=== PATIENT | male | born 1955 | race Caucasian/White ===

== ENCOUNTER → 2016-09-27 | Outpatient (CLI) | payer OTHER ==
[2016-09-27 12:58] LABS: ALKALINE PHOSPHATASE 81 U/L (45-117); ALT/SGPT 57 U/L (12-78); AST/SGOT 31 U/L (15-37); BLOOD UREA NITROGEN 21 mg/dl (7-18); CALCIUM 9.2 mg/dl (8.5-10.1); CARBON DIOXIDE 28 mmol/L (21-32); CHLORIDE 106 mmol/L (98-107); GLUCOSE 93 mg/dl (70-99); HDL CHOLESTEROL 51 mg/dl; POTASSIUM 4.8 mmol/L (3.5-5.1); SODIUM 139 mmol/L (136-145)
[2016-09-27 13:00] LABS: CHOLESTEROL 167 mg/dl (0-200); CHOLESTEROL/HDL RATIO 3.3; LDL CHOLESTEROL CALCULATED 90 mg/dl; TRIGLYCERIDES 132 mg/dl (0-150); VERY LOW DENSITY LIPOPROT CALC 26 mg/dl
== END | disposition home or self-care (01) ==
LOC: C.LAB 11:15
PROVIDERS: ATTEND Family Medicine
DX: I10 Essential (primary) hypertension (principal)

== ENCOUNTER 2017-01-19 15:14 | Emergency (ER) | payer OTHER ==
[~2017-01-19] VITALS: Ht 177.8 cm; Wt 133.7 kg
[2017-01-19 15:25] VITALS: TEMP 37; Ht 177.8 cm; Wt 133.7 kg
[2017-01-19] MEDS ORDERED: XYLOCAINE 1%/SOD BICARB 20 ML VIAL INFIL ONE (15:32)
--- NOTE | 2017-01-19 16:02 | EMERGENCY ROOM VISIT NOTE ---
ED Visit Note First contact with patient: 15:30 Chief Complaint: "Cut finger pathology labwork related". History of Present Illness: This patient is a 61-year-old male who presents to the Emergency Department via private vehicle for evaluation of their left thumb laceration. Patient sustained the laceration while changing a blade on a pathology saw here in the hospital. They report a minimal amount of bleeding initially. They report no decreased range of motion of the affected digit. Patient rates his current discomfort as a 0/10. Patient's Tetanus status is currently up-to-date. 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 Physical Exam: VITAL SIGNS - Vital signs and nursing notes were reviewed.Stable. Hypertensive. GENERAL - 61-year-old male appearing his stated age who is in no acute distress. Communicates well with provider and answers questions appropriately. SKIN - There is a 1 cm long laceration noted to the distal aspect of left thumb that is superficial and no active bleeding. MUSCULOSKELETAL - Laceration as described above. +5/5 strength appreciated of the affected digit. Full range of motion of the affected digit. VASCULAR - Capillary refill was brisk. ED Course: Patient was seen and evaluated by myself. Risks and benefits of performing primary wound closure versus no repair were discussed with the patient who verbalizes understanding. Verbal consent was obtained prior to performing the procedure. The wound was not deep enough to require any closure here. The region was cleansed with sterile saline and Betadine. Region was then dressed with a bacitracin dressing. I will deem the risk of transmission significant given that it did cut him with the pathology saw which was used a few weeks ago to cut bone. He declines HIV prophylaxis. I believe this is reasonable. Based on labs were drawn. Appropriate paperwork was completed. I spoke with Ms. Jie Patterson regarding the patient. He will follow up with their office. He is to watch his blood pressure. He was educated upon management, educated upon worrisome symptoms which to return, had questions answered prior to discharge, and was discharged home in good condition. Current/Historical Medications Miscellaneous Medications None (Patient States No Home Meds) Allergies Coded Allergies: No Known Allergies (Verified , 02/04/11) Uncoded Allergies: N (Allergy, Unknown, 03/27/02) NKDA (Allergy, Unknown, 03/27/02) Vital Signs Date Time Temp Pulse Resp B/P (MAP) Pulse Ox O2 Delivery O2 Flow Rate FiO2 01/19/17 16:40 84 18 162/114 94 Room Air 01/19/17 15:25 37.0 89 16 196/104 96 Room Air Departure Information Impression Primary Impression: Laceration Additional Impression: Employee exposure to body fluids Dispostion Home / Self-Care Condition GOOD Referrals Shaun Jo DO (PCP) Patient Instructions My [facility] Additional Instructions You were seen in the emergency department for your thumb laceration as well as exposure to potential body fluid/dust. At this time you have submitted to baseline testing. Please follow with Jie Patterson as well as employee health for further evaluation and management. Please watch for signs of infection to the thumb keep the area clean. Please return with any new/concerning symptoms. Problem Qualifiers
[2017-01-19 16:40] VITALS: BP 162/114; PULSE 84; O2SAT 94
== END 2017-01-19 16:40 | disposition home or self-care (01) ==
LOC: C.EDB 15:16 → C.EDD 16:40
DX: S61.012A Laceration without foreign body of left thumb without damage to nail, initial encounter (principal); W31.9XXA Contact with unspecified machinery, initial encounter; Z77.21 Contact with and (suspected) exposure to potentially hazardous body fluids

== ENCOUNTER 2023-02-25 09:46 | Inpatient (IN) ==
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
--- OUTSIDE RECORDS SUMMARY | 2023-02-25 09:50 | External Medical Summary | Continuity of Care Document ---
Author Name Unknown Organization [place] [address] [address] [facility] [address] [place], [place] [id number] Care Team Providers Care Exchange Clerk Name Role Phone Shaun Jo Primary Care Physician [phone] Encounter [facility] JOVANNY [id number] Date(s): 11/16/22 - 11/16/22 [place] [address] [address]AR [address] [facility] Neurosurgery [address] [facility] [place] [address] [phone] Encounter Diagnosis Parkinson disease(Discharge Diagnosis) - 11/16/22 Discharge Disposition: Home or Self Care Attending Physician: MD Lord James Referring Physician: ALYSE Ahumada Renee D Allergies, Adverse Reactions, Alerts No Known Medication Allergies Assessment and Plan Extracted from: Title:Clinical Document Author:MD Lord Ja mes Date:11/16/22 NEUROSURGERY OUTPATIENT NOTE Name: HERMELINDA LEWIS Patient Number: [id number] : 1955 Date of Service: 11/16/2022 Chief Complaint: 67 yo male, s/p Left cranial wound revision. HPI: Hermelinda Lewis is a gentleman who underwent bilateral STN deep brain stimulator implantation in May and had an area of breakdown develop over his left cranial wound. We repaired that electively in September and he comes in today for a post op check. He has been off antibiotics for two weeks and he continues to heal well. He has no concerns. Current Home Meds: (Last Updated 11/16 10:40) carbidopa-levodopa (carbidopa-levodopa 25 mg-100 mg oral tablet) 1 tab PO bid 7 am and 3 pm with option of up to 3 times a day on a busy day cephalexin (Keflex 250 mg oral capsule) 250 mg PO qid chlorthalidone (chlorthalidone 25 mg oral tablet) 25 mg PO Daily cholecalciferol (D3) 1 tab PO Daily cyanocobalamin (Vitamin B12) 1 tab PO Daily lisinopril 40 mg PO Daily multivitamin (Multi Vitamin+) 1 tab PO Daily Allergies and Sensitivities: No Known Medication Allergies Past Medical History: Problems: S/P deep brain stimulator placement Pre-op exam Parkinson disease Essential hypertension OBJECTIVE Vitals: Last Updated 11/16/22 10:42 Date Temp BP Location Pulse RR SpO2 Pain 11/16/22 121/78 Right Arm 100 11/16/22 0 10/02/22 126/77 96 21 97 0 Vital Signs are the last 3 documented. Orthostatic: Last Updated 09/19/22 14:36 Date Lying 5 Min BP Lying 5 Min HR Standing 1 Min BP Standing 1 Min HR Standing 3 Min BP Standing 3 Min HR 09/19/22 152/83 93 06/28/22 159/101 100 Orthostatic blood pressures are the last 3 documented. Height and Weight: Last Updated 11/16/22 10:42 Date BMI Wt(kg) Wt(lb) Method Ht(cm) (ft-in) Method 11/16/22 40.58 128.3 282 Standing Scale 177.8 5-10 Patient stated 10/02/22 39.7 10/02/22 125.5 276 Standing Scale Heights and Weights are the last 3 documented. Physical Exam: General: Well developed, Well nourished, in no acute distress HEENT: Normocephalic, well healed left cranial incision Pupils equal reactive Extraocular motions intact Face symmetric Hearing intact Voice normal Neck: Full range of motion, Sternocleidomastoid strength equal bilaterally Cardiac: no abnormalities noted Lungs: no abnormalities noted Abdomen: no abnormalities noted Rectal: deferred : deferred Back: no abnormalities noted Extremities: no abnormalities noted Neuro: Awake, Alert oriented x 3 Aware of his situation CN II-XII intact Motor function 5/5 throughout B upper and lower extremities Sensation intact in B upper and lower extremities Gait normal Tone increased Skin: Normal 30 Day Labs: No 30 Day Lab Data. ASSESSMENT: 67 yo male, s/p Left cranial wound revision. PLAN: Mr. Lewis is doing we ll. We can follow him up on his current schedule which will be one year after surgery. He was pleased with these plans as we outlined them and all of his questions were answered today. He knows we are available at any time should further questions or problems arise. Time spent: 15 minutes >50% spent in counseling and care coordination. Medications carbidopa-levodopa 25 mg-100 mg oral tablet [...] qid, Disp# 360 cap, Refills: 3, Pharmacy: [facility]/pharmacy #[id number] Start Date: 10/02/22 Status: Ordered lisinopril Start: 06/28/22 12:49:00 EDT, 40 mg =, PO, Daily Start Date: 06/28/22 Status: Ordered Multi Vitamin+ Start: 05/16/22 8:24:00 EDT, 1 tab, PO, Daily Start Date: 05/16/22 Status: Ordered Vitamin B12 Start: 05/16/22 8:25:00 EDT, 1 tab, PO, Daily Start Date: 05/16/22 Status: Ordered Mental Status 11/16/22 Barriers to Learning one year None evide nt Mandatory Health Literacy Documentation Yes Health Literacy Communication Barriers N ever Primary Language Gu[place]ian Problem List Condition Confirmation Course Effective Dates Status Health St atus Informant Essential hypertension Confirmed Active S/P deep brain stimulator placement Confirmed Active Pre-op exam Confirmed Active Diagnosis Diagnosis Type Effective Dates Health Status Cl inical Service Informant Parkinson disease Discharge Diagnosis 11/16/22 Procedures Procedure Date Related Diagnosis Body Site [...] oldest [Reference Range]: 1 Height 177.8 cm (11/16/22 10:42 AM) Patient Weight 128.3 kg (11/16/22 10:42 AM) Body Mass Index 40.58 kg/m2 (11/16/22 10:42 AM) Heart Rate 100 bpm (11/16/22 10:42 AM) Blood Pressure 121/78mmHg (11/16/22 10:42 AM) BP Location # 1 Right Arm (11/16/22 10:42 AM) Social History Social History Type Response [...] Unknown Unknown Active Unkn own Unknown Unknown [id number] Unknown 03/01/23 Unknown Unknown Active Unk nown [...] Unknown Unknown Active Unkn own Unknown Unknown [id number] Unknown 01/28/23 Unknown Unknown Active Unknown Unknown Unknown [id number] Unknown 01/28/23 Unknown Unknown Active Unknown Neurosurgery Outpt Note * MD Risa, Jerry: PERFORM Event Display: Neurosurgery Outpt Note Authored Date: [id number] NEUROSURGERY OUTPATIENT NOTE Name: HERMELINDA LEWIS Patient Number: [id number] : 1955 Date of Service: 11/16/2022 Chief Complaint: 67 yo male, s/p Left cranial wound revision. HPI: Hermelinda Lewis is a gentleman who underwent bilateral STN deep brain stimulator implantation in May and had an area of breakdown develop over his left cranial wound. We repaired that electively in September and he comes in today for a post op check. He has been off antibiotics for two weeks and hecontinues to heal well. He has no concerns. Current Home Meds: (Last Updated 11/16 10:40) carbidopa-levodopa (carbidopa-levodopa 25 mg-100 mg oral tablet) 1 tab PO bid 7 am and 3 pm with option of up to 3 times a day on a busy day cephalexin (Keflex 250 mg oral capsule) 250 mg PO qid chlorthalidone (chlorthalidone 25 mg oral tablet) 25 mg PO Daily cholecalciferol (D3) 1 tab PO Daily cyanocobalamin (Vitamin B12) 1 tab PO Daily lisinopril 40 mg PO Daily multivitamin (Multi Vitamin+) 1 tab PO Daily Allergies and Sensitivities: No Known Medication Allergies Past Medical History: Problems: S/P deep brain stimulator placement Pre-op exam Parkinson disease Essential hypertension OBJECTIVE Vitals: Last Updated 11/16/22 10:42 Date Temp BP Location Pulse RR SpO2 Pain 11/16/22 121/78 Right Arm 100 11/16/22 0 10/02/22 126/77 96 21 97 0 Vital Signs are the last 3 documented. Orthostatic: Last Updated 09/19/22 14:36 Date Lying 5 Min BP Lying 5 Min HR Standing 1 Min BP Standing 1 Min HR Standing 3 Min BP Standing 3 Min HR 09/19/22 152/83 93 06/28/22 159/101 100 Orthostatic blood pressures are the last 3 documented. Height and Weight: Last Updated 11/16/22 10:42 Date BMI Wt(kg) Wt(lb) Method Ht(cm) (ft-in) Method 11/16/22 40.58 128.3 282 Standing Scale 177.8 5-10 Patient stated 10/02/22 39.7 10/02/22 125.5 276 Standing Scale Heights and Weights are the last 3 documented. Physical Exam: General: Well developed, Well nourished, in no acute distress HEENT: Normocephalic, well healed left cranial incision Pupils equal reactive Extraocular motions intact Face symmetric Hearing intact Voice normal Neck: Full range of motion, Sternocleidomastoid strength equal bilaterally Cardiac: no abnormalities noted Lungs: no abnormalities noted Abdomen: no abnormalities noted Rectal: deferred : deferred Back: no abnormalities noted Extremities: no abnormalities noted Neuro: Awake, Alert oriented x 3 Aware of his situation CN II-XII intact Motor function 5/5 throughout B upper and lower extremities Sensation intact in B upper and lower extremities Gait normal Tone increased Skin: Normal 30 Day Labs: No 30 Day Lab Data. ASSESSMENT: 67 yo male, s/p Left cranial wound revision. PLAN: Mr. Lewis is doing we ll. We can follow him up on his current schedule which will be one year after surgery. He was pleased with these plans as we outlined them and all of his questions were answered today. He knows we are available at any time should further questions or problems arise. Time spent: 15 minutes >50% spent in counseling and care coordination. Electronic Signature on File Electronically Reviewed/Signed by: Jerry Lord MD, FACS, FAANS Author Signature Dt/Tm:11/16/2022 04:04 PM Professor, Department of Neurosurgery [facility] [address], [address] [place] [address] , Patient Care team information Care Team Personnel Name: Isabella, PhD, Rand Position: Physician - Neurosurgery Member Role: Lifetime Relationship Address: Address: Neurosurgery [address] [place] [address] [address] [place] [address] Name: DO Jo Brian Rodger Position: Referring Member Role: Primary Care Provider Address: Address: [address] [place] [id number] [place] Care Team Related Persons Name: BENITO LEWIS Address: home NO ADDRESS PROVIDED
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
--- OUTSIDE RECORDS SUMMARY | 2023-02-25 09:50 | External Medical Summary | Continuity of Care Document ---
Author Name Unknown Organization [place] [address] [address] Address [address] [facility] [address] [place] [phone] Care Team Providers Care Block Cableman Name Role Phone Shaun Jo Primary Care Physician [phone] [id number] Date(s): 09/19/22 - 09/19/[address] [place] [address] [facility] [place] [address] [facility], [address], Entr[address] [place] [address] [phone] Encounter Diagnosis Parkinson disease(Discharge Diagnosis) - 09/19/22 Discharge Disposition: Home or Self Care Attending Physician: Lombardo MD, Martina Referring Physician: DO Jo Brian Rodger Allergies, Adverse Reactions, Alerts No Known Medication Allergies Assessment and Plan Extracted from: Title:Clinical Document Author:Lombardo MD, Martina Date:09/19/22 NEUROLOGY OUTPATIENT NOTE Name: HERMELINDA LEWIS Patient Number: [id number] : [id number] Date of Service: 09/19/2022 Chief Complaint: _ PD/ET, DBS 3 month from initial (06/28/2022) HPI: _ History was obtained from . Mr. Lewis is a 66 year old right handed gentleman with Parkinson disease/Essential tremor, symptoms onset tremor at childhood and parkinsonism since 2019. TU scan obtained at candidacy screening clinic with abnormal dopaminergic changes consistent with a parkinsonian disorder. He is status post a bilateral STN deep brain stimulation lead placement Percept S[facility] on 05/24/2022 and left IPG placement 05/31/2022 at [facility]. Indications for DBS _ breakthrough tremor Expectations for DBS to help with: #1 tremors #2 muscle heaviness and leg stiffness #3_ improve slowness Current Medications: Sinemet 25/100mg 1 tab TID reduced at last visit from 2 tab PO tid 7, 11, 3 Benefit from medication: no big difference between dosages, no significant negative effects with missing a dose or reducing. Past medications trialed: _ Propranolol no improvement legs felt like lead and dropped his pulse. with past Sinemet increases felt Brain fog for several months. Since the last visit, finds he is doing well. Was able to reduce medicine without any side effects. Not experiencing tremors before the surgery required eating with opposite hand and adapting. No brain fog currently. Mood is good. Feels close to 100% improved he can write, eat and do activities he has not been able to do in the past. Has not made any adjustments since the last visit, last adjustments did help. Does not notice stiffness and rigidity. Percept Group Setting: beginning of visit Battery 96% Expected battery life: 7years 4months Impedance: Normal Default Therapy group: A: 1- C+ 2.2 mA PW 60 Freq 135 [0.0- 2.6] with increased mA 10- C+ 1.9mA PW 60 Freq 135 [0.0-2.3] BrainSensing Group: A: 1- C+ 2.2 mA PW 60 Freq 125 [0.0-2.7] 10- C+ 1.9mA PW 60 Freq 125 [0.0-2.3] New Therapy Group A: 1- C+ 2.2 mA PW 60 Freq 140 [0.0- 2.6] Arrived on this group 10- C+ 1.9mA PW 60 Freq 140 [0.0-2.3] Brain sense survey: Left hemisphere peak 11.72 [power:1.25] *0-3* segment 8.79 [1.25] Right hemisphere peak 8.79 power [2.12] *8-19* Events Monitored: No monitoring events for this visit Brainsense set up: not changed today from prior set up Contact 1 peak7.81 [power above 1.39] Contact 2- peak7.81 [power 1.20] Contact 1-2- peak11.72 [power 1.25] Contact 9 peak 26.37 [power 1.14] Contact 10 peak26.37 [power 1.44] Contact 9-10- peak7.81 [power 2.14] Clinical Global Impression Scale (obtained at 3 months, 6 months and annually): Primary symptom tremor Overall symptoms muscle heaviness, leg stiffness, bradykinesia Patient perception (primary symptom) 1 Examiner evaluation (primary symptom) 1 Patient perception (overall symptoms) 1 Examiner evaluation (overall symptom) 1 1=Very much improved; 2=Much improved; 3=Minimally improved; 4=No change; 5=Minimally worse; 6=Much worse; 7=Very much worse Current Home Meds: (Last Updated 08/25 13:04) carbidopa-levodopa (carbidopa-levodopa 25 mg-100 mg oral tablet) 2 tab PO tid chlorthalidone (chlorthalidone 25 mg oral tablet) 25 mg PO Daily cholecalciferol (D3) 1 tab PO Daily cyanocobalamin (Vitamin B12) 1 tab PO Daily lisinopril 40 mg PO Daily multivitamin (Multi Vitamin+) 1 tab PO Daily Allergies and Sensitivities: No Known Medication Allergies Past Medical History: Problems: Pre-op exam Parkinson disease Essential hypertension OBJECTIVE Vitals: Last Updated 08/25/22 13:02 Date Temp BP Location Pulse RR SpO2 Pain 08/25/22 36.7 134/85 Left Arm 90 16 08/25/22 0 07/28/22 36.6 138/84 Left Arm 100 16 Vital Signs are the last 3 documented. Orthostatic: Last Updated 06/28/22 12:50 Date Lying 5 Min BP Lying 5 Min HR Standing 1 Min BP Standing 1 Min HR Standing 3 Min BP Standing 3 Min HR 06/28/22 159/101 100 Orthostatic blood pressures are the last 3 documented. Height and Weight: Last Updated 08/25/22 13:02 Date BMI Wt(kg) Wt(lb) Method Ht(cm) (ft-in) Method 08/25/22 40.71 129 284 Standing Scale 178 5-10 Standing 07/28/22 129.3 284 Standing Scale 06/28/22 128 282 Standing Scale Heights and Weights are the last 3 documented. Physical Exam General: Patient is well appearing, in no acute distress. III. MOTOR EXAMINATION OFF levodopa 430pm yesterday 3a. Is the patient on medication for treating the symptoms of Parkinson s Disease? _XYes _No 3b. Patient s clinical state: _ON X_OFF 3c. Is the patient on Levodopa? X_Yes _No 3.C1. If yes, minutes since last levodopa dose: 8.5 hours 3.1. Speech X_0 _1 _2 _3 _4 3.2. Facial expression _0 X_1 _2 _3 _4 3.3. Rigidity a.Neck _0 X_1 _2 _3 _4 b.Right Upper extremity _0 X_1 _2 _3 _4 c.Left Upper extremity _0 X_1 _2 _3 _4 worse d. Right Lower extremity X_0 _1 _2 _3 _4 e. Left Lower extremity _0 X_1 _2 _3 _4 3.4 Finger taps a. Right hand X_0 _1 _2 _3 _4 b. Left hand _0 X_1 _2 _3 _4 3.5. Hand movements a. Right hand _0 _1 X_2 _3 _4 b. Left hand _0 X_1 _2 _3 _4 3.6. Rapid alternating a. Right hand _0 X_1 _2 _3 _4 b. Left hand _0 X_1 _2 _3 _4 slight slower 3.7 Toe tapping a. Right leg X_0 _1 _2 _3 _4 b. Left leg _0 X_1 _2 _3 _4 3.8 Leg agility a. Right leg _0 X_1 _2 _3 _4 b. Left leg _0 X_1 _2 _3 _4 3.9 Arising from chair _0 X_1 _2 _3 _4 3.10 Gait X_0 _1 _2 _3 _4 3.11 Freezing X_0 _1 _2 _3 _4 3.12 Postural stability X_0 _1 _2 _3 _4 0 steps 3.13 Posture _0 X_1 _2 _3 _4 3.14 Body bradykinesia X_0 _1 _2 _3 _4 3.15 Post tremor a. Right hand X_0 _1 _2 _3 _4 b. Left hand X_0 _1 _2 _3 _4 3.16 Action tremor a. Right hand X_0 _1 _2 _3 _4 b. Left hand _0 X_1 _2 _3 _4 3.17. Rest Tremor a. Right Hand _0 X_1 _2 _3 _4 b. Left Hand _0 _1 X_2 _3 _4 intermittent c. Right Leg X_0 _1 _2 _3 _4 d. Left Leg X_0 _1 _2 _3 _4 e. Face Tremor X_0 _1 _2 _3 _4 3.18 Constancy of rest tremor _0 X_1 _2 _3 _4 Motor Sub-total: 21/132 Previous Motor Sub-Total: 25/132 Motor Sub-total OFF:49/132 Motor Sub-total ON:43/132 (levodopa 12% response) Percept Group Setting: end of visit Default Therapy group: A: 1- C+ 2.2 mA PW 60 Freq 135 [0.0- 2.6] 10- C+ 1.9mA PW 60 Freq 135 [0.0-2.3] BrainSensing Group: A: 1- C+ 2.2 mA PW 60 Freq 125 [0.0-2.7] 10- C+ 1.9mA PW 60 Freq 125 [0.0-2.3] New Therapy Group A: 1- C+ 2.2 mA PW 60 Freq 140 [0.0- 2.6] Left on this group 10- C+ 1.9mA PW 60 Freq 140 [0.0-2.3] ASSESSMENT: _ Parkinson disease Mr. Lewis is a 66 year old right handed gentleman with Parkinson disease/Essential tremor, symptoms onset tremor at childhood and parkinsonism since 2019. TU scan obtained at candidacy screening clinic with abnormal dopaminergic changes consistent with a parkinsonian disorder. Family history of tremor. Levodopa challenge 12 % response, subjectively improved on levodopa. Symptoms inadequately controlled due to bothersome tremor impacting social situations and daily activities. No clear kicking in or wearing off of levodopa. Tremor medications in the past (Propranolol) without improvement and side effects of bradycardia. Exposures secondary to occupation. He is status post a bilateral STN deep brain stimulation lead placement Per[facility] on 05/24/2022 and left IPG placement 05/31/2022 at [facility]. He has done extremely well with symptom control at 3 month checking, motor scores continue to improve from baseline in the off medication ON DBS state. Resolution of brain fog, follow up neuropsych testing stable. Tolerated medication reduction and continues to be able to skip dosages without clear return of symptoms. PLAN: _ 1 ) _ Medication recommendations: can consider reducing to BID 7am, 3pm 2 ) _ Advised to keep an eye of left posterior incision looks clear without secretions however question of scab region, have taken picture and informed neurosurgery team for upcoming follow up next week. 3) Patient will return to clinic in 3 month(s) for further evaluation and management of his deep brain stimulator. I spent a total of 50 minutes on this patient's care on the day of their visit excluding time spent related to any billed procedures (15 minutes interrogation and programming of his deep brain stimulator. General and therapeutic impedances were obtained and battery status checked). This time includes gxde-dv-gpeb time with the patient as well as time spent documenting in the medical record, reviewing patient's records, obtaining history, communicating with other healthcare professionals, counseling the patient and family and or care coordination for the diagnosis above. Thank you for the kind referral and for allowing us the opportunity to participate in the care of this patient. I hope to follow and help manage the patient in partnership with you. Please do not hesitate to contact our department with further questions or concerns. Medications carbidopa-levodopa 25 mg-100 mg oral tablet [...] PO, Daily Start Date: 05/16/22 Status: Ordered lisinopril Start: 06/28/22 12:49:00 EDT, 40 mg =, PO, Daily Start Date: 06/28/22 Status: Ordered Multi Vitamin+ Start: 05/16/22 8:24:00 EDT, 1 tab, PO, Daily Start Date: 05/16/22 Status: Ordered Vitamin B12 Start: 05/16/22 8:25:00 EDT, 1 tab, PO, Daily Start Date: 05/16/22 Status: Ordered Mental Status 09/19/22 Barriers to Learning one year None evide nt Mandatory Health Literacy Documentation Yes Health Literacy Communication Barriers N ever Primary Language Georgian Problem List Condition Confirmation Course Effective Dates Status Health St atus Informant Essential hypertension Confirmed Active S/P deep brain stimulator placement Confirmed Active Pre-op exam Confirmed Active Diagnosis Diagnosis Type Effective Dates Health Status Cl inical Service Informant Parkinson disease Discharge Diagnosis 09/19/22 Procedures Procedure Date Related Diagnosis Body Site [...] Most recent to oldest [Reference Range]: 1 Patient Weight 128.8 kg (09/19/22 2:36 PM) Heart Rate 89 bpm (09/19/22 2:36 PM) Blood Pressure 141/82mmHg (09/19/22 2:36 PM) Cuff Pulse Pressure 59 mmHg (09/19/22 2:36 PM) BP Location # 1 Left Arm (09/19/22 2:36 PM) Social History Social History Type Response [...] Unknown Unknown Active Unkn own Unknown Unknown [id number] Unknown 03/01/23 Unknown Unknown Active Unk nown [...] Unknown Unknown Active Unkn own Unknown Unknown [id number] Unknown 01/28/23 Unknown Unknown Active Unknown Unknown Unknown [id number] Unknown 01/28/23 Unknown Unknown Active Unknown Neurology Outpatient Note * Lombardo MD, Martina: PERFORM, MODIFY, MODIFY Event Display: Neurology Outpt Note Authored Date: [id number] NEUROLOGY OUTPATIENT NOTE Name: HERMELINDA LEWIS Patient Number: [id number] : [id number] Date of Service: 09/19/2022 Chief Complaint: _ PD/ET, DBS 3 month from initial (06/28/2022) HPI: _ History was obtained from . Mr. Lewis is a 66 year old right handed gentleman with Parkinson disease/Essential tremor, symptoms onset tremor at childhood and parkinsonism since 2019. TU scan obtained at candidacy screening clinic with abnormal dopaminergic changes consistent with a parkinsonian disorder. He is status post abilateral STN deep brain stimulation lead placement Percept [facility] on 05/24/2022 and left IPG placement 05/31/2022 at [facility]. Indications for DBS _ breakthrough tremor Expectations for DBS to help with: #1 tremors #2 muscle heaviness and leg stiffness #3_ improve slowness Current Medications: Sinemet 25/100mg 1 tab TID reduced at last visit from 2 tab PO tid 7, 11, 3 Benefit from medication: no big difference between dosages, no significant negative effects with missing a dose or reducing. Past medications trialed: _ Propranolol no improvement legs felt like lead and dropped his pulse. with past Sinemet increases felt Brain fog for several months. Since the last visit, finds he is doing well. Was able to reduce medicine without any side effects.Not experiencing tremors before the surgery required eating with opposite hand and adapting. No brain fog currently. Mood is good. Feels close to 100% improved he can write, eat and do activities he has not been able to do in the past. Has not made any adjustments since the last visit, last adjustments did help. Does not notice stiffness and rigidity. Percept Group Setting: beginning of visit Battery 96% Expected battery life: 7years 4months Impedance: Normal Default Therapy group: A: 1- C+ 2.2 mA PW 60 Freq 135 [0.0- 2.6] with increased mA 10- C+ 1.9mA PW 60 Freq 135 [0.0-2.3] BrainSensing Group: A: 1- C+ 2.2 mA PW 60 Freq 125 [0.0-2.7] 10- C+ 1.9mA PW 60 Freq 125 [0.0-2.3] New Therapy Group A: 1- C+ 2.2 mA PW 60 Freq 140 [0.0- 2.6] Arrived on this group 10- C+ 1.9mA PW 60 Freq 140 [0.0-2.3] Brain sense survey: Left hemisphere peak 11.72 [power:1.25] *0-3* segment 8.79 [1.25] Right hemisphere peak 8.79 power [2.12] *8-19* Events Monitored: No monitoring events for this visit Brainsense set up: not changed today from prior set up Contact 1 peak7.81 [power above 1.39] Contact 2- peak7.81 [power 1.20] Contact 1-2- peak11.72 [power 1.25] Contact 9 peak 26.37 [power 1.14] Contact 10 peak26.37 [power 1.44] Contact 9-10- peak7.81 [power 2.14] Clinical Global Impression Scale (obtained at 3 months, 6 months and annually): Primary symptom tremor Overall symptoms muscle heaviness, leg stiffness, bradykinesia Patient perception (primary symptom) 1 Examiner evaluation (primary symptom) 1 Patient perception (overall symptoms) 1 Examiner evaluation (overall symptom) 1 1=Very much improved; 2=Much improved; 3=Minimally improved; 4=No change; 5=Minimally worse; 6=Muchworse; 7=Very much worse Current Home Meds: (Last Updated 08/25 13:04) carbidopa-levodopa (carbidopa-levodopa 25 mg-100 mg oral tablet) 2 tab PO tid chlorthalidone (chlorthalidone 25 mg oral tablet) 25 mg PO Daily cholecalciferol (D3) 1 tab PO Daily cyanocobalamin (Vitamin B12) 1 tab PO Daily lisinopril 40 mg PO Daily multivitamin (Multi Vitamin+) 1 tab PO Daily Allergies and Sensitivities: No Known Medication Allergies Past Medical History: Problems: Pre-op exam Parkinson disease Essential hypertension OBJECTIVE Vitals: Last Updated 08/25/22 13:02 Date Temp BP Location Pulse RR SpO2 Pain 08/25/22 36.7 134/85 Left Arm 90 16 08/25/22 0 07/28/22 36.6 138/84 Left Arm 100 16 Vital Signs are the last 3 documented. Orthostatic: Last Updated 06/28/22 12:50 Date Lying 5 Min BP Lying 5 Min HR Standing 1 Min BP Standing 1 Min HR Standing 3 Min BP Standing 3 Min HR 06/28/22 159/101 100 Orthostatic blood pressures are the last 3 documented. Height and Weight: Last Updated 08/25/22 13:02 Date BMI Wt(kg) Wt(lb) Method Ht(cm) (ft-in) Method 08/25/22 40.71 129 284 Standing Scale 178 5-10 Standing 07/28/22 129.3 284 Standing Scale 06/28/22 128 282 Standing Scale Heights and Weights are the last 3 documented. Physical Exam General: Patient is well appearing, in no acute distress. III. MOTOR EXAMINATION OFF levodopa 430pm yesterday 3a. Is the patient on medication for treating the symptoms of Parkinsons Disease? _XYes _No 3b. Patients clinical state: _ON X_OFF 3c. Is the patient on Levodopa? X_Yes _No 3.C1. If yes, minutes since last levodopa dose: 8.5 hours 3.1. Speech X_0 _1 _2 _3 _4 3.2. Facial expression _0 X_1 _2 _3 _4 3.3. Rigidity a.Neck _0 X_1 _2 _3 _4 b.Right Upper extremity _0 X_1 _2 _3 _4 c.Left Upper extremity _0 X_1 _2 _3 _4 worse d. Right Lower extremity X_0 _1 _2 _3 _4 e. Left Lower extremity _0 X_1 _2 _3 _4 3.4 Finger taps a. Right hand X_0 _1 _2 _3 _4 b. Left hand _0 X_1 _2 _3 _4 3.5. Hand movements a. Right hand _0 _1 X_2 _3 _4 b. Left hand _0 X_1 _2 _3 _4 3.6. Rapid alternating a. Right hand _0 X_1 _2 _3 _4 b. Left hand _0 X_1 _2 _3 _4 slight slower 3.7 Toe tapping a. Right leg X_0 _1 _2 _3 _4 b. Left leg _0 X_1 _2 _3 _4 3.8 Leg agility a. Right leg _0 X_1 _2 _3 _4 b. Left leg _0 X_1 _2 _3 _4 3.9 Arising from chair _0 X_1 _2 _3 _4 3.10 Gait X_0 _1 _2 _3 _4 3.11 Freezing X_0 _1 _2 _3 _4 3.12 Postural stability X_0 _1 _2 _3 _4 0 steps 3.13 Posture _0 X_1 _2 _3 _4 3.14 Body bradykinesia X_0 _1 _2 _3 _4 3.15 Post tremor a. Right hand X_0 _1 _2 _3 _4 b. Left hand X_0 _1 _2 _3 _4 3.16 Action tremor a. Right hand X_0 _1 _2 _3 _4 b. Left hand _0 X_1 _2 _3 _4 3.17. Rest Tremor a. Right Hand _0 X_1 _2 _3 _4 b. Left Hand _0 _1 X_2 _3 _4 intermittent c. Right Leg X_0 _1 _2 _3 _4 d. Left Leg X_0 _1 _2 _3 _4 e. Face Tremor X_0 _1 _2 _3 _4 3.18 Constancy of rest tremor _0 X_1 _2 _3 _4 Motor Sub-total: 21/132 Previous Motor Sub-Total: 25/132 Motor Sub-total OFF:49/132 Motor Sub-total ON:43/132 (levodopa 12% response) Percept Group Setting: end of visit Default Therapy group: A: 1- C+ 2.2 mA PW 60 Freq 135 [0.0- 2.6] 10- C+ 1.9mA PW 60 Freq 135 [0.0-2.3] BrainSensing Group: A: 1- C+ 2.2 mA PW 60 Freq 125 [0.0-2.7] 10- C+ 1.9mA PW 60 Freq 125 [0.0-2.3] New Therapy Group A: 1- C+ 2.2 mA PW 60 Freq 140 [0.0- 2.6] Left on this group 10- C+ 1.9mA PW 60 Freq 140 [0.0-2.3] ASSESSMENT: _ Parkinson disease Mr. Lewis is a 66 year old right handed gentleman with Parkinson disease/Essential tremor, symptoms onset tremor at childhood and parkinsonism since 2019. TU scan obtained at candidacy screening clinic with abnormal dopaminergic changes consistent with a parkinsonian disorder. Family history of tremor. Levodopa challenge 12 % response, subjectively improved on levodopa. Symptoms inadequately controlled due to bothersome tremor impacting social situations and daily activities. No clear kickingin or wearing off of levodopa. Tremor medications in the past (Propranolol) without improvement andside effects of bradycardia. Exposures secondary to occupation. He is status post a bilateral STN deep brain stimulation lead placement Percept [facility] on 05/24/2022 and left IPG placement 05/31/2022 at [facility]. He has done extremely well with symptom control at 3 month checking, motor scores continue to improve from baseline in the off medication ON DBS state. Resolution of brain fog, follow up neuropsych testing stable. Tolerated medication reduction and continues to be able to skip dosages without clear return of symptoms. PLAN: _ 1 ) _ Medication recommendations: can consider reducing to BID 7am, 3pm 2 ) _ Advised to keep an eye of left posterior incision looks clear without secretions however question of scab region, have taken picture and informed neurosurgery team for upcoming follow up next week. 3) Patient will return to clinic in 3 month(s) for further evaluation and management of his deep brain stimulator. I spent a total of 50 minutes on this patient's care on the day of their visit excluding time spentrelated to any billed procedures (15 minutes interrogation and programming of his deep brain stimulator. General and therapeutic impedances were obtained and battery status checked). This time includes muwn-gz-aibm time with the patient as well as time spent documenting in the medical record, reviewing patient's records, obtaining history, communicating with other healthcare professionals, counseling the patient and family and or care coordination for the diagnosis above. Thank you for the kind referral and for allowing us the opportunity to participate in the care of this patient. I hope to follow and help manage the patient in partnership with you. Please do not hesitate to contact our department with further questions or concerns. Electronic Signature on File CC: Shaun Jo DO [facility] [place] [address] * Electronically Reviewed/Signed by: Martina Lombardo MD Author Signature Dt/Tm:09/19/2022 04:05 PM Department of Neurology [place] Patient Care team information Care Team Personnel Name: PhD Isabella, Rand Position: Physician - Neurosurgery Member Role: Lifetime Relationship Address: Address: Neurosurgery [address] [place] [address] [address] [place] [address] [place] Name: DO Jo Brian Rodger Position: Referring Member Role: Primary Care Provider Address: Address: [address] [place] [address] [place] [address] Care Team Related Persons Name: BENITO LEWIS Address: home NO ADDRESS PROVIDED
--- OUTSIDE RECORDS SUMMARY | 2023-02-25 09:50 | External Medical Summary | Continuity of Care Document ---
Author Name Unknown Organization [place] [address] [address] [place] [address] [place] [id number] Care Team Providers Care Acute Care Nurse Name Role Phone Shaun Jo Primary Care Physician [phone] [facility] [id number] Date(s): 09/19/22 - 09/19/22 [place] [address] [address] [facility] Neurosurgery [address], [address], [address] [place] [address] [phone] Encounter Diagnosis Dementia(Discharge Diagnosis) - 09/19/22 Parkinsons disease(Discharge Diagnosis) - 09/19/22 Discharge Disposition: Home or Self Care Attending Physician: Isabella, PhD, [facility] Referring Physician: DO Jo Brian Rodger Allergies, [...] Diagnosis Diagnosis Type Effective Dates Health Status Clinical Service Informant Parkinsons disease Discharge Diagnosis 09/19/22 Non-Specified Dementia Discharge Diagnosis 09/19/22 Non-Specified Procedures Procedure Date Related Diagnosis Body [...] Unknown Unknown Active Unkn own Unknown Unknown [id number] Unknown 03/01/23 Unknown Unknown Active Unk nown [...] Unknown Unknown Active Unkn own Unknown Unknown [id number] Unknown 01/28/23 Unknown Unknown Active Unknown Unknown Unknown [id number] 21 Unknown 01/28/23 Unknown Unknown Active Unknown Patient Care team information Care Team Personnel Name: Isabella, PhD, Rand Position: Physician - Neurosurgery Member Role: Lifetime Relationship Address: Address: Neurosurgery [address] [place] [address] [address] [place] [address] [place] Name: DO Jo Brian Rodger Position: Referring Member Role: Primary Care Provider Address: Address: [address] [place] [address], [place] [address] [place] Care Team Related Persons Name: BENITO LEWIS Address: home NO ADDRESS PROVIDED
--- OUTSIDE RECORDS SUMMARY | 2023-02-25 09:50 | External Medical Summary | Continuity of Care Document ---
Author Name Unknown Organization [place] [address] [address] [place], [place] [id number] Care Team Providers Care Scrap Piler Name Role Phone Shaun Jo Primary Care Physician [phone] [facility]counter [facility] [id number] Date(s): 09/12/22 - 09/12/22 [place] [address] [address] [facility] Neurosurgery [address], [address] [place] [address] [phone] Encounter Diagnosis Lewy body dementia(Discharge Diagnosis) - 09/12/22 Parkinson disease(Discharge Diagnosis) - 09/12/22 Discharge Disposition: Home or Self Care Attending Physician: Isabella, PhD, Rand Referring Physician: DO Jo Brian Rodger Allergies, Adverse Reactions, Alerts No Known Medication Allergies Medications carbidopa-levodopa 25 mg-100 mg oral tablet Start: 07/28/22 11:44:00 EDT, 2 tab, PO, tid, Disp# 540 tab, Refills: 1, Pharmacy: [facility]/pharmacy #[id number] Start Date: 07/28/22 Stop Date: 01/24/23 Status: Ordered chlorthalidone 25 mg oral tablet [...] St atus Informant Essential hypertension Confirmed Active Pre-op exam Confirmed Active Diagnosis Diagnosis Type Effective Dates Health Status Cl inical Service Informant Parkinson disease Discharge Diagnosis 09/12/22 Non-Specified Lewy body dementia Discharge Diagnosis 09/12/22 Non-Specified Procedures Procedure Date Related Diagnosis Body [...] Unknown Unknown Active Unkn own Unknown Unknown [id number] Unknown 03/01/23 Unknown Unknown Active Unk nown [...] Unknown Unknown Active Unkn own Unknown Unknown [id number] Unknown 01/28/23 Unknown Unknown Active Unknown Unknown Unknown [id number] Unknown 01/28/23 Unknown Unknown Active Unknown Patient Care team information Care Team Personnel Name: Isabella, PhD, Rand Position: Physician - Neurosurgery Member Role: Lifetime Relationship Address: Address: Neurosurgery [facility] [address] [place] [address] Name: DO Jo Brian Rodger Position: Referring Member Role: Primary Care Provider Address: Address: [address] [place] [address], [place] [address] [place] Care Team Related Persons Name: LEWIS BENITO Address: home NO ADDRESS PROVIDED
[2023-02-25] MEDS ORDERED: ALBUTEROL HFA 8 GM INHALER INH ONE (10:24)
--- NOTE | 2023-02-25 10:34 | Emergency Department Note ---
Impression & Plan SOB (shortness of breath), Tachycardia, Pneumonia, COVID-19 ED Provider Note NAME: HERMELINDA LEWIS AGE: 67 SEX: M : 1955 ARRIVES VIA: Walk-In INFORMANT: Patient, family ED PROVIDER(S): [Nguyễn Hollins MD] CHIEF COMPLAINT: Shortness of breath HISTORY OF PRESENT ILLNESS: The patient is a 67-year-old male who has been coughing for about a week. Cough is nonproductive. No fever. He does feel short of breath especially laying down. No diagnosed lung disease. He was around some family members who seem to have some sort of chest cold, they did test negative for COVID. The patient has an appointment to see his doctor's office tomorrow but, was concerned because of his dyspnea. He presents for evaluation. PMHx/PSHx/Social Hx: See Below PHYSICAL EXAM: GENERAL: Patient is in no acute distress. HEENT: No acute trauma, normocephalic atraumatic, mucous membranes moist, no nasal congestion. NECK: No stridor, no adenopathy, no meningismus, trachea is midline. LUNGS: Dry cough noted. Wheezing bilaterally with diminished breath sounds bilaterally. No respiratory distress. HEART: Mildly tachycardic, regular rhythm, no murmurs. ABDOMEN: Soft, nontender, no peritonitis. EXTREMITIES: No cyanosis, full range of motion of all the joints without pain or difficulty. NEUROLOGIC: Oriented x 3, no acute motor or sensory deficits, no focal weakness. SKIN: No jaundice, no diaphoresis. DIFFERENTIAL DIAGNOSIS: RSV, COVID-19, influenza, pneumonia or bronchitis, bacteremia or sepsis, among others. EMERGENCY DEPARTMENT PROCEDURES: MEDICAL DECISION MAKING: There is no leukocytosis or concerning anemia. There is a normal platelet count. No renal failure or significant electrolyte abnormality. No concerning liver enzyme elevation. ECG shows a sinus tachycardia, no obvious ischemia. Cardiac enzyme testing x 1 is not consistent with acute cardiac injury. Lactic acid level is not elevated making severe sepsis less likely. Respiratory bio fire was positive for COVID-19. Chest x-ray shows a left midlung pneumonia. Chest CT does not show PE, multifocal pneumonia thought viral in etiology was noted. The patient received IV saline, 1 L. He received oral Hycodan for his cough. He was given IV Decadron because of the COVID diagnosis. He received IV ceftriaxone as antibiotic coverage. He was given albuterol via MDI. The patient persists with his tachycardia. He feels washed out, weak, he does have some mild left-sided chest discomfort when he coughs. Patient likely has a viral COVID-pneumonia. Given his presentation and findings, I do think hospitalization would be warranted. I did speak with the patient and case management, the on-call hospitalist was consulted. Prior/Outside records/notes reviewed: Neurology note from 03/21/2022 discussing his Parkinson's and tremor and the plan moving forward. ECG per my interpretation: Indication was tachycardia and shortness of breath. The ECG shows a sinus tachycardia with a rate of 111. There is some nonspecific ST change. There is no acute ST elevation, no PVCs. The QTc is 443. Continuous Cardiac Monitoring per my interpretation: An order was placed for continuous cardiac monitoring. The monitor shows a rate of 112 with sinus tachycardia. Imaging/x-ray results per my interpretation: Chest x-ray shows what appears to be a left midlung pneumonia. No CHF. Chronic Medical/Social conditions affecting care: Parkinson's disease. Care/Management discussed with: Case management, the on-call hospitalist. Level of care consideration(s): After review of the information above and other included data: --I believe the patient requires escalation of care to admission DISPOSITION: Admission Past Med/Surg History Medical History Parkinsons disease History of hypertension Parkinsonian tremor Laceration Surgical History H/O colonoscopy S/P nasal surgery History of facial surgery S/P appendectomy Family History Sister Breast cancer Grandfather (Maternal) Stroke Grandfather (Paternal) Tremor Grandmother (Paternal) Diabetes Uncle Colorectal cancer Grandfather Heart disease Hypertension Social History Smoking Status: Never smoker Hx Alcohol Use: Yes Alcohol type: beer and wine Alcohol Intake Frequency: Monthly or Less Hx Substance Use: No Preferred Language: Maltese marital status: 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 How many Children do You have: 1 Feels Safe at Home: Yes Diet: regular during the past year weight has: remained stable Allergies Allergies Allergy/AdvReac Type Severity Reaction Status Date / Time propranolol AdvReac Severe water Verified 02/25/23 13:28 weight gain Home Meds Home Medications Medication Instructions Recorded Confirmed lisinopril 40 mg tablet 40 mg PO DAILY 06/16/21 02/25/23 chlorthalidone 25 mg tablet 25 mg PO DAILY 03/21/22 02/25/23 Previous Rx's Medication Instructions Recorded cholecalciferol (vitamin D3) 125 125 mcg PO DAILY 8 weeks #60 caps 06/20/21 mcg (5,000 unit) capsule mecobalamin (vitamin B12) 1,000 1,000 mcg sublingual DAILY #30 tabs 06/20/21 mcg disintegrating tablet,sublingual carbidopa 25 mg-levodopa 100 mg 2 tab PO TID 90 days #540 tabs 12/23/21 tablet (Sinemet) Results & Data (ED) Vital Signs Vital Signs - 24 hr 02/25/23 09:54 02/25/23 10:02 02/25/23 10:02 Temperature 36.4 C L Temperature Source Temporal Artery Scan Pulse Rate 110 H 113 H Pulse Rate from SpO2 Sensor 113 H Respiratory Rate 20 27 H Respiratory Depth Normal Blood Pressure 112/76 Blood Pressure [Right Arm] Blood Pressure Mean 88 Blood Pressure Mean [Right Arm] Pulse Oximetry 93 94 Oxygen Delivery Method Room Air Room Air Sepsis Recent Fever Within 48 Hours No Sepsis New/Unexplained Change in Mental Status No Sepsis Action Taken by Nursing No Action Required Pulse Oximetry Post Tiitration 97 02/25/23 10:07 02/25/23 10:10 02/25/23 10:20 Temperature Temperature Source Pulse Rate 112 H 113 H 109 H Pulse Rate from SpO2 Sensor 113 H 110 H Respiratory Rate 32 H 20 Respiratory Depth Blood Pressure Blood Pressure [Right Arm] Blood Pressure Mean Blood Pressure Mean [Right Arm] Pulse Oximetry 94 94 Oxygen Delivery Method Sepsis Recent Fever Within 48 Hours Sepsis New/Unexplained Change in Mental Status Sepsis Action Taken by Nursing Pulse Oximetry Post Tiitration 02/25/23 10:30 02/25/23 10:40 02/25/23 10:47 Temperature Temperature Source Pulse Rate 110 H 111 H Pulse Rate from SpO2 Sensor 108 H 111 H Respiratory Rate 32 H 34 H Respiratory Depth Blood Pressure Blood Pressure [Right Arm] Blood Pressure Mean Blood Pressure Mean [Right Arm] Pulse Oximetry 94 92 97 Oxygen Delivery Method Room Air Sepsis Recent Fever Within 48 Hours Sepsis New/Unexplained Change in Mental Status Sepsis Action Taken by Nursing Pulse Oximetry Post Tiitration 02/25/23 10:50 02/25/23 11:00 02/25/23 11:04 Temperature Temperature Source Pulse Rate 113 H 109 H 114 H Pulse Rate from SpO2 Sensor 113 H 107 H 114 H Respiratory Rate 25 H 24 25 H Respiratory Depth Blood Pressure Blood Pressure [Right Arm] Blood Pressure Mean Blood Pressure Mean [Right Arm] Pulse Oximetry 92 91 93 Oxygen Delivery Method Sepsis Recent Fever Within 48 Hours Sepsis New/Unexplained Change in Mental Status Sepsis Action Taken by Nursing Pulse Oximetry Post Tiitration 02/25/23 11:04 02/25/23 11:07 02/25/23 11:07 Temperature Temperature Source Pulse Rate 109 H Pulse Rate from SpO2 Sensor 112 H Respiratory Rate 34 H Respiratory Depth Blood Pressure 91/65 L 99/65 L Blood Pressure [Right Arm] Blood Pressure Mean 70 75 Blood Pressure Mean [Right Arm] Pulse Oximetry 93 Oxygen Delivery Method Sepsis Recent Fever Within 48 Hours Sepsis New/Unexplained Change in Mental Status Sepsis Action Taken by Nursing Pulse Oximetry Post Tiitration 02/25/23 11:10 02/25/23 11:20 02/25/23 11:30 Temperature Temperature Source Pulse Rate 111 H 110 H 110 H Pulse Rate from SpO2 Sensor 111 H 110 H 110 H Respiratory Rate 34 H 29 H 37 H Respiratory Depth Blood Pressure Blood Pressure [Right Arm] Blood Pressure Mean Blood Pressure Mean [Right Arm] Pulse Oximetry 93 91 92 Oxygen Delivery Method Sepsis Recent Fever Within 48 Hours Sepsis New/Unexplained Change in Mental Status Sepsis Action Taken by Nursing Pulse Oximetry Post Tiitration 02/25/23 11:57 02/25/23 11:57 02/25/23 12:00 Temperature Temperature Source Pulse Rate Pulse Rate from SpO2 Sensor 106 H 111 H Respiratory Rate Respiratory Depth Blood Pressure 102/75 Blood Pressure [Right Arm] Blood Pressure Mean 79 Blood Pressure Mean [Right Arm] Pulse Oximetry 94 93 Oxygen Delivery Method Sepsis Recent Fever Within 48 Hours Sepsis New/Unexplained Change in Mental Status Sepsis Action Taken by Nursing Pulse Oximetry Post Tiitration 02/25/23 12:30 02/25/23 13:00 02/25/23 13:30 Temperature Temperature Source Pulse Rate 101 H Pulse Rate from SpO2 Sensor 105 H 97 H Respiratory Rate 34 H Respiratory Depth Blood Pressure Blood Pressure [Right Arm] Blood Pressure Mean Blood Pressure Mean [Right Arm] Pulse Oximetry 94 Oxygen Delivery Method Room Air Sepsis Recent Fever Within 48 Hours Sepsis New/Unexplained Change in Mental Status Sepsis Action Taken by Nursing Pulse Oximetry Post Tiitration 02/25/23 14:00 02/25/23 14:06 02/25/23 14:28 Temperature 37.5 C Temperature Source Oral Pulse Rate 100 H 96 H Pulse Rate from SpO2 Sensor 100 H Respiratory Rate 27 H Respiratory Depth Blood Pressure Blood Pressure [Right Arm] 93/76 L Blood Pressure Mean Blood Pressure Mean [Right Arm] 81 Pulse Oximetry 94 Oxygen Delivery Method Room Air Sepsis Recent Fever Within 48 Hours Sepsis New/Unexplained Change in Mental Status Sepsis Action Taken by Nursing Pulse Oximetry Post Tiitration Home Medications Current Medication List: was personally reviewed by me Laboratory Data Attestation: I reviewed the patient's lab results. 02/25/23 10:43 02/25/23 10:43 Lab Results 02/25/23 02/25/23 02/25/23 Range/Units 10:05 10:40 10:43 WBC 9.54 (4.8-10.8) K/ul RBC 4.70 (4.70-6.10) M/uL Hgb 15.0 (14.0-18.0) g/dl Hct 44.2 (42.0-52.0) % MCV 94.0 (80.0-100.0) fL MCH 31.9 (25.0-34.0) pg MCHC 33.9 (32.0-36.0) g/dL RDW Std Deviation 43.3 (36.4-46.3) fL RDW Coeff of Hiral 12.4 (11.5-14.5) % Plt Count 233 (130-400) K/uL MPV 10.3 (9.4-12.4) fL Immature Gran % (Auto) 0.6 % Neut % (Auto) 82.9 % Lymph % (Auto) 8.5 % [place] % (Auto) 7.2 % Eos % (Auto) 0.6 % Baso % (Auto) 0.2 % Neut # (Auto) 7.90 H (1.40-6.50) K/uL Lymph # (Auto) 0.81 L (1.20-3.40) K/uL [place] # (Auto) 0.69 H (0.11-0.59) K/uL Eos # (Auto) 0.06 (0.00-0.50) K/uL Baso # (Auto) 0.02 (0.00-0.20) K/uL Immature Gran # (Auto) 0.06 (0.01-0.20) K/uL Sodium 133 L (136-145) mmol/L Potassium 3.8 (3.5-5.1) mmol/L Chloride 100 (98-107) mmol/L Carbon Dioxide 26 (21-32) mmol/L Anion Gap 7 (3-11) BUN 26 H (6-23) mg/dl Creatinine 1.31 (0.6-1.4) mg/dl Est Cr Clr Drug Dosing Not Reportable Est GFR ( Amer) 63.9 ml/min Est GFR (Non-Af Amer) 55.2 ml/min BUN/Creatinine Ratio 19.8 (10-20) Glucose 102 H (70-99(Fasting)) mg/dl Lactate 1.4 (0.4-2.0) mmol/L Calcium 8.4 L (8.6-10.3) mg/dl Magnesium 2.0 (1.7-2.4) mg/dl Total Bilirubin 0.5 (0.2-1.0) mg/dl AST 71 H (13-39) U/L ALT 10 (7-52) U/L Alkaline Phosphatase 67 (34-104) U/L Troponin I High Sens 9.9 (0-20) pg/ml C-Reactive Protein 2.74 H (0-0.5) mg/dl Total Protein 7.0 (6.0-8.3) gm/dl Albumin 3.9 (3.4-5.0) gm/dl Globulin 3.1 (2.5-4.0) gm/dl Albumin/Globulin Ratio 1.3 (0.9-2) Procalcitonin < 0.05 (0-0.5) ng/ml Adenovirus (PCR) Not Detected (NotDetected) B. pertussis DNA (PCR) Not Detected (NotDetected) B.parapertussis DNA PCR Not Detected (NotDetected) C. pneumoniae DNA (PCR) Not Detected (NotDetected) Coronavirus OC43 (PCR) Not Detected (NotDetected) Coronavirus HKU1 (PCR) Not Detected (NotDetected) Coronavirus 229E (PCR) Not Detected (NotDetected) SARS-CoV-2 (PCR) DETECTED A* (NotDetected) Coronavirus NL63 (PCR) Not Detected (NotDetected) Human Metapneumovir PCR Not Detected (NotDetected) Influenza Type A (PCR) Not Detected (NotDetected) Influenza Type B (PCR) Not Detected (NotDetected) M. pneumoniae (PCR) Not Detected (NotDetected) Parainfluenza 1 (PCR) Not Detected (NotDetected) Parainfluenza 2 (PCR) Not Detected (NotDetected) Parainfluenza 3 (PCR) Not Detected (NotDetected) Parainfluenza 4 (PCR) Not Detected (NotDetected) RSV (PCR) Not Detected (NotDetected) Entero/Rhino (PCR) Not Detected (NotDetected) Administered Medications Discontinued Medications Albuterol (Albuterol Hfa 8 Gm Inhaler) 2 puffs INH NOW ONE Stop: 02/25/23 10:25 Last Admin: 02/25/23 10:37 Dose: 2 puffs Documented By: TIGRE Dexamethasone Sodium Phosphate (DexamethasonePf 10 Mg/Ml Vial) 6 mg IV NOW ONE Stop: 02/25/23 11:51 Last Admin: 02/25/23 12:45 Dose: 6 mg Documented By: BITA Hydrocodone Bit/Homatropine Methylb (Hydrocodone/Homatropine Syrup 5mg/1.5mg 5ml Udp) 5 ml PO NOW STA Stop: 02/25/23 14:04 Last Admin: 02/25/23 14:07 Dose: 5 ml Documented By: BITA Ceftriaxone Sodium (Rocephin) 2,000 mg in 50 mls @ 100 mls/hr IV NOW STA Stop: 02/25/23 11:22 Last Infusion: 02/25/23 11:34 Dose: Infused Documented By: Admin: 02/25/23 11:04 Dose: 100 mls/hr Documented By: BITA Sodium Chloride (Nss) 1,000 mls @ 999 mls/hr IV .Q1H1M ONE Stop: 02/25/23 13:53 Last Infusion: 02/25/23 15:32 Dose: Infused Documented By: Admin: 02/25/23 13:25 Dose: 999 mls/hr Documented By: BITA Ioversol (Optiray 320 125ml) 119 ml IV ONCE ONE Stop: 02/25/23 11:51 Last Admin: 02/25/23 11:51 Dose: 119 ml Documented By: EDK Imaging Data Radiologist's Impression: Chest X-Ray 02/25/23 10:24 SINGLE VIEW CHEST CLINICAL HISTORY: Dyspnea FINDINGS: An AP, portable, upright chest radiograph is obtained. No prior studies are available for comparison at the time of dictation. The examination is degraded by portable technique and patient rotation. An electronic device partially obscures the left upper chest. Leads extend in the neck. The heart is enlarged noting atherosclerotic calcification of the thoracic aorta. The pulmonary vasculature is noncongested. There is bibasilar scarring/atelectasis. There are apparent airspace opacities in the left lower lung which may represent overlying soft tissue. No large pleural effusion or pneumothorax is seen. The skeletal structures are osteopenic. The bony thorax is grossly intact. IMPRESSION: 1. Cardiomegaly without radiographic evidence of congestive failure. 2. Apparent airspace opacities in the left lower lung may be related to overlying soft tissue. A repeat PA and lateral examination is recommended for better assessment. ACT 112: Negative or not required by law. Electronically signed by: Nguyễn Mckeon M.D. 02/25/2023 10:46 AM Chest CTA 02/25/23 11:39 CT ANGIOGRAM OF THE CHEST CLINICAL HISTORY: Dyspnea. Covid. COMPARISON STUDY: Chest x-ray dated 02/25/2023. TECHNIQUE: Following the IV administration of 119 cc of Optiray 320, CT angiogram of the chest was performed from the upper abdomen to the thoracic inlet utilizing the pulmonary embolus protocol. Images are reviewed in the axial, sagittal, and coronal planes. 3-D MIPS images are created and assessed. IV contrast was administered without complication. A dose lowering technique was utilized adhering to the principles of ALARA. CT DOSE: 929.22 mGy.cm FINDINGS: Thyroid: Imaged portions of the thyroid gland are normal in size and attenuation. A 1.5 cm low-attenuation nodule is noted in the left lobe. Thoracic aorta: There is atherosclerotic calcification of the thoracic aorta, which is normal in caliber and demonstrates standard 3-vessel arch anatomy. No dissection is seen. Pulmonary vasculature: The pulmonary trunk is normal in caliber. There are no filling defects identified in main, lobar, or segmental pulmonary branches to suggest pulmonary embolus. Evaluation of the peripheral branches is degraded by motion artifact and suboptimal contrast opacification. Heart: The heart is normal in size and without pericardial effusion. The coronary arteries are densely calcified. Lungs and pleural spaces: There is multifocal patchy groundglass consolidation seen throughout both lungs, greatest at the left lung base. Mediastinum: There is no mediastinal lymphadenopathy. Avril: Mildly enlarged hilar nodes measure up to 15 mm in short axis. Axillae: There is no axillary lymphadenopathy. Upper abdomen: The liver is enlarged and steatotic. Nodularity of the hepatic surface contour suggests morphologic changes of cirrhosis. A 3.5 cm enhancing lesion is suggested arising from the left lobe of liver on image #16. There is a small hiatal hernia. Skeletal structures: No lytic or blastic bony lesions are seen. Degenerative change and kyphoscoliosis is noted in the spine. Arthritic change is noted in the shoulders. Soft tissues: An electronic device is present in the left chest wall with leads extending into the neck. IMPRESSION: 1. There is no evidence of pulmonary embolus in the main, lobar, or segmental pulmonary arteries. Note that evaluation of the peripheral branches is degraded by motion artifact. 2. Multifocal groundglass consolidation is consistent with the reported history of a viral pneumonia. Radiographic follow-up to resolution is recommended. Follow-up imaging should include both PA and lateral projections. 3. Mildly enlarged hilar lymph nodes are likely reactive. 4. The liver is enlarged, severely steatotic, and shows morphologic changes of cirrhosis. 5. A 3.5 cm enhancing mass is suggested arising from the left lobe of the liver. This is pathologically indeterminate, and GI follow-up is recommended as a hepatic neoplasm is to be excluded. 6. Advanced coronary artery atherosclerosis. 7. There is a 1.5 cm low-attenuation nodule in the left lobe of the thyroid. A nonemergent thyroid ultrasound is recommended in follow-up. 8. Additional findings as above. ACT 112: Positive. There are findings on this exam that require communication between the performing entity and the patient following Patient Test Result Information Act ([place] Act 112) guidelines. Electronically signed by: Nguyễn Mckeon M.D. 02/25/2023 1:00 PM Discharge Plan Visit Data Chief Complaint: Shortness of Breath/Dyspnea Stated Complaint: DIFFICULTY BREATHING ED Provider: Nguyễn Hollins Discharge Problem: SOB (shortness of breath), Tachycardia, Pneumonia, COVID-19 Patient Disposition: Admitted As Inpatient Condition: Fair Forms Stand Alone Forms: [facility] [employer] Prescriptions Prescriptions: No Action mecobalamin (vitamin B12) 1,000 mcg tablet,disintegrating 1,000 mcg sublingual DAILY Qty: 30 11RF Rx Instructions: Place 1 tablet under the tongue and allow to dissolve for at least 30 secs before swallowing. cholecalciferol (vitamin D3) 125 mcg (5,000 unit) capsule 125 mcg PO DAILY 56 Days Qty: 60 1RF carbidopa-levodopa [Sinemet] 25-100 mg tablet 2 tab PO TID 90 Days Qty: 540 1RF lisinopril 40 mg tablet 40 mg PO DAILY chlorthalidone 25 mg tablet 25 mg PO DAILY Referrals Referrals: Shaun Jo [Primary Care Provider] - Discharge Problem: Pneumonia Qualifiers: Pneumonia type: due to unspecified organism Laterality: left Lung location: u nspecified part of lung Qualified Code(s): J18.9 - Pneumonia, unspecified organism
--- NOTE | 2023-02-25 10:47 | XRay Report ---
SINGLE VIEW CHEST CLINICAL HISTORY: Dyspnea FINDINGS: An AP, portable, upright chest radiograph is obtained. No prior studies are available for c omparison at the time of dictation. The examination is degraded by portable technique and patient rot ation. An electronic device partially obscures the left upper chest. Leads extend in the neck. The he art is enlarged noting atherosclerotic calcification of the thoracic aorta. The pulmonary vasculature is noncongested. There is bibasilar scarring/atelectasis. There are apparent airspace opacities in t he left lower lung which may represent overlying soft tissue. No large pleural effusion or pneumothor ax is seen. The skeletal structures are osteopenic. The bony thorax is grossly intact. IMPRESSION: 1. Cardiomegaly without radiographic evidence of congestive failure. 2. Apparent airspace opacities in the left lower lung may be related to overlying soft tissue. A repe at PA and lateral examination is recommended for better assessment. ACT 112: Negative or not required by law. Electronically signed by: Nguyễn Mckeon M.D. 02/25/2023 10:46 AM
[2023-02-25] MEDS ORDERED: cefTRIAXone SODIUM 2,000 MG/50 ML BAG IV STA (10:53)
[2023-02-25 11:02] LABS: Basophils # (auto) 0.02 K/uL (0.00-0.20); Basophils % (auto) 0.2 %; Eosinophils # (auto) 0.06 K/uL (0.00-0.50); Eosinophils % (auto) 0.6 %; Hematocrit (blood only) 44.2 % (42.0-52.0); Immature Granulocytes # (auto) 0.06 K/uL (0.01-0.20); Immature Granulocytes % (auto) 0.6 %; Lymphocytes # (auto) 0.81 K/uL (1.20-3.40); Lymphocytes % (auto) 8.5 %; Mean Corpuscular Hemoglobin 31.9 pg (25.0-34.0); Mean Corpuscular Hgb Conc 33.9 g/dL (32.0-36.0); Mean Platelet Volume 10.3 fL (9.4-12.4); Monocytes # (auto) 0.69 K/uL (0.11-0.59); Monocytes % (auto) 7.2 %; Neutrophils % (auto) 82.9 %; Platelet Count 233 K/uL (130-400); RDW Coefficient of Variation 12.4 % (11.5-14.5); RDW Standard Deviation 43.3 fL (36.4-46.3); White Blood Count 9.54 K/ul (4.8-10.8)
[2023-02-25 11:17] LABS: Alanine Aminotransferase 10 U/L (7-52); Albumin Globulin Ratio 1.3 (0.9-2); Albumin Level 3.9 gm/dl (3.4-5.0); Alkaline Phosphatase 67 U/L (34-104); Anion Gap 7 (3-11); Aspartate Aminotransferase 71 U/L (13-39); BUN Creatinine Ratio 19.8 (10-20); Bilirubin,Total 0.5 mg/dl (0.2-1.0); Blood Urea Nitrogen 26 mg/dl (6-23); Calcium 8.4 mg/dl (8.6-10.3); Carbon Dioxide 26 mmol/L (21-32); Chloride 100 mmol/L (98-107); Est GFR (African American) 63.9 ml/min; Est GFR (Non-African American) 55.2 ml/min; Globulin 3.1 gm/dl (2.5-4.0); Glucose 102 mg/dl (70-99(Fasting)); Potassium 3.8 mmol/L (3.5-5.1); Sodium 133 mmol/L (136-145)
[2023-02-25 11:24] LABS: Troponin I High Sensitivity 9.9 pg/ml (0-20)
[2023-02-25 11:28] LABS: Adenovirus PCR Not Detected (NotDetected); Bordetella parapertussis PCR Not Detected (NotDetected); Bordetella pertussis PCR Not Detected (NotDetected); Chlamydia pneumoniae PCR Not Detected (NotDetected); Coronavirus 229E PCR Not Detected (NotDetected); Coronavirus HKU1 PCR Not Detected (NotDetected); Coronavirus NL63 PCR Not Detected (NotDetected); Coronavirus OC43PCR Not Detected (NotDetected); Human Metapneumovirus PCR Not Detected (NotDetected); Influenza A PCR Not Detected (NotDetected); Influenza B PCR Not Detected (NotDetected); Mycoplasma pneumoniae PCR Not Detected (NotDetected); Parainfluenza Virus 1 PCR Not Detected (NotDetected); Parainfluenza Virus 2 PCR Not Detected (NotDetected); Parainfluenza Virus 3 PCR Not Detected (NotDetected); Parainfluenza Virus 4 PCR Not Detected (NotDetected); Respiratory Syncytial VirusPCR Not Detected (NotDetected); Rhinovirus/Enterovirus PCR Not Detected (NotDetected)
[2023-02-25 11:35] LABS: Coronavirus CoV-2 (COVID19)PCR DETECTED (NotDetected)
[2023-02-25] MEDS ORDERED: dexAMETHasone**PF** 10 MG/ML VIAL IV ONE (11:50)
[2023-02-25] MEDS ORDERED: OPTIRAY 320 125ml IV ONE (11:50)
[2023-02-25] MEDS ORDERED: SODIUM CHLORIDE 0.9% 1,000 ML IV ONE (12:53)
--- NOTE | 2023-02-25 13:02 | CT Scan Report ---
CT ANGIOGRAM OF THE CHEST CLINICAL HISTORY: Dyspnea. Covid. COMPARISON STUDY: Chest x-ray dated 02/25/2023. TECHNIQUE: Following the IV administration of 119 cc of Optiray 320, CT angiogram of the chest was pe rformed from the upper abdomen to the thoracic inlet utilizing the pulmonary embolus protocol. Images are reviewed in the axial, sagittal, and coronal planes. 3-D MIPS images are created and assessed. I V contrast was administered without complication. A dose lowering technique was utilized adhering to the principles of ALARA. CT DOSE: 929.22 mGy.cm FINDINGS: Thyroid: Imaged portions of the thyroid gland are normal in size and attenuation. A 1.5 cm low-attenu ation nodule is noted in the left lobe. Thoracic aorta: There is atherosclerotic calcification of the thoracic aorta, which is normal in harjit merrill and demonstrates standard 3-vessel arch anatomy. No dissection is seen. Pulmonary vasculature: The pulmonary trunk is normal in caliber. There are no filling defects identif ied in main, lobar, or segmental pulmonary branches to suggest pulmonary embolus. Evaluation of the p eripheral branches is degraded by motion artifact and suboptimal contrast opacification. Heart: The heart is normal in size and without pericardial effusion. The coronary arteries are densel y calcified. Lungs and pleural spaces: There is multifocal patchy groundglass consolidation seen throughout both l ungs, greatest at the left lung base. Mediastinum: There is no mediastinal lymphadenopathy. Avril: Mildly enlarged hilar nodes measure up to 15 mm in short axis. Axillae: There is no axillary lymphadenopathy. Upper abdomen: The liver is enlarged and steatotic. Nodularity of the hepatic surface contour suggest s morphologic changes of cirrhosis. A 3.5 cm enhancing lesion is suggested arising from the left lobe of liver on image #16. There is a small hiatal hernia. Skeletal structures: No lytic or blastic bony lesions are seen. Degenerative change and kyphoscoliosi s is noted in the spine. Arthritic change is noted in the shoulders. Soft tissues: An electronic device is present in the left chest wall with leads extending into the ne ck. IMPRESSION: 1. There is no evidence of pulmonary embolus in the main, lobar, or segmental pulmonary arteries. Not e that evaluation of the peripheral branches is degraded by motion artifact. 2. Multifocal groundglass consolidation is consistent with the reported history of a viral pneumonia. Radiographic follow-up to resolution is recommended. Follow-up imaging should include both PA and la teral projections. 3. Mildly enlarged hilar lymph nodes are likely reactive. 4. The liver is enlarged, severely steatotic, and shows morphologic changes of cirrhosis. 5. A 3.5 cm enhancing mass is suggested arising from the left lobe of the liver. This is pathological ly indeterminate, and GI follow-up is recommended as a hepatic neoplasm is to be excluded. 6. Advanced coronary artery atherosclerosis. 7. There is a 1.5 cm low-attenuation nodule in the left lobe of the thyroid. A nonemergent thyroid ul trasound is recommended in follow-up. 8. Additional findings as above. ACT 112: Positive. There are findings on this exam that require communication between the performing entity and the patient following Patient Test Result Information Act ([place] Act 112) guidelines. Electronically signed by: Nguyễn Mckeon M.D. 02/25/2023 1:00 PM
[2023-02-25] MEDS ORDERED: HYDROcodone/HOMATROPINE SYRUP 5MG/1.5MG 5ML UDP PO STA (14:03)
--- NOTE | 2023-02-25 14:10 | History & Physical Report ---
Date of Service February 25, 2023 Assessment & Plan (1) COVID: Plan: Worsening SOB and dry cough x 1 week COVID+ on arrival SpO2 in the 91-94% range on RA at time of admission No leukocytosis; afebrile CRP mildly elevated at 2.74 Procalcitonin WNL Troponin WNL Lactate WNL EKG revealed sinus tachycardia at 111 bpm; QTc 443 CXR revealed cardiomegaly with evidence of congestive failure, as well as airspace opacities in the left lower lung Chest CTA revealed no evidence of pulmonary embolism, but noted a multifocal groundglass consolidation consistent with viral pneumonia Rocephin 2000 mg IV given in the ED Patient was on levofloxacin 500 mg p.o. daily starting on 02/19 prior to admission (for worsening dry cough) COVID isolation precautions in place Will defer remdesivir for now as patient is outside the window based on his symptoms Supplemental oxygen as needed to maintain SpO2 >94% Decadron 6 mg IV QAM x 10 days Guaifenesin 600 mg p.o. q12h for cough Acetaminophen as needed for pain/fever Zofran as needed for nausea/vomiting A.m. CBC, BMP, AFP (2) Liver mass: Plan: Chest CTA noted 3.5 cm liver mass; recommended GI follow-up to exclude hepatic neoplasm Pending a.m. AFP, consider outpatient follow-up after patient has recovered from COVID (3) Parkinsons disease: Plan: Continue Sinemet (4) History of hypertension: Plan: Continue lisinopril, chlorthalidone Plan Disposition: Admit to [facility] [place] telemetry Full code Regular diet VTE PPx: SCDs, Lovenox 40 mg SQ q24h History of Present Illness Chief Complaint: SOB/dyspnea Primary Care Provider: Shaun Jo Dave is a 67-year-old male with PMH of essential tremor, HTN, HLD, and Parkinson's disease. He presented for worsening SOB and dry cough x 8 days. COVID-positive on arrival. Patient reports that he has been taking NyQuil at night for his dry cough, but has not been helping. He also endorses left-sided chest pain from the cough. Breathing/coughing is not positional, or worse when lying flat. Taking deep breaths causes the patient to cough, which makes the left-sided chest pain worse. Patient has never had COVID in the past. However he has received 2 COVID vaccinations, as well as a booster (with the last booster being December 2020). Patient does endorse being around sick contacts recently, but reports that he has been feeling sick and coughing even before that. Symptoms began on 02/17. No at home supplemental oxygen use. Patient denies tobacco use, smoking, vaping, alcohol use, and recreational drug use. Patient also reports that he has been on levofloxacin 500 mg daily x 10 days, which she was prescribed by his PCP on 02/19 for cough. He also reports that he had burning with urination about a week ago, however this resolved. He also reports that he had 1 episode 3-4 weeks ago of heavy coughing while drinking coffee that "went down the wrong pipe"; this led the patient to have a brief syncopal episode for several seconds; no head strike; he did not seek medical attention at this time. Patient took all of his morning medications today; no recent change in medications. He is mildly hypotensive at 93/76 at time of admission; SpO2 94% on RA. ED course: Albuterol 2 puffs Rocephin 2000 mg IV Decadron 6 mg IV NSS 1000 mL IV Hycodan 5 mL p.o. ROS: Patient endorses body aches, lightheadedness, L-sided chest pain (which patient attributes to coughing; pleuritic), dry cough, and burning with urination (which resolved one week ago). Patient denies fever, chills, nightsweats, BONILLA, chest palpitations, SOB at rest, ISAAC, hemoptysis, abdominal pain, N/V/D, dysuria, or numbness/tingling in the arms or legs. Allergies Allergy/AdvReac Type Severity Reaction Status Date / Time propranolol AdvReac Severe water Verified 02/25/23 13:28 weight gain Home Medications Medication Instructions Recorded Confirmed Type lisinopril 40 mg tablet 40 mg PO DAILY 06/16/21 02/25/23 History cholecalciferol (vitamin D3) 125 125 mcg PO DAILY 8 weeks #60 caps 06/20/21 02/25/23 Rx mcg (5,000 unit) capsule mecobalamin (vitamin B12) 1,000 1,000 mcg sublingual DAILY #30 tabs 06/20/21 02/25/23 Rx mcg disintegrating tablet,sublingual carbidopa 25 mg-levodopa 100 mg 2 tab PO TID 90 days #540 tabs 12/23/21 02/25/23 Rx tablet (Sinemet) chlorthalidone 25 mg tablet 25 mg PO DAILY 03/21/22 02/25/23 History Past Med/Surg History Medical History Parkinsons disease History of hypertension Parkinsonian tremor Laceration Surgical History H/O colonoscopy S/P nasal surgery History of facial surgery S/P appendectomy Family History Sister Breast cancer Grandfather (Maternal) Stroke Grandfather (Paternal) Tremor Grandmother (Paternal) Diabetes Uncle Colorectal cancer Grandfather Heart disease Hypertension Social History Smoking Status: Never smoker Hx Alcohol Use: No Hx Substance Use: No Preferred Language: Tamaz[place] Diagnostic Radiologic Technologist Required: No Beliefs That Will Affect Care: None marital status: Current Living Situation: Family Current Living Situation Comment: with daughter 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 How many Children do You have: 1 Feels Safe at Home: Yes Safety Concerns: Feels Safe At This Time Diet: regular during the past year weight has: remained stable Review of Systems Review of Systems: See HPI above Physical Exam Physical Exam: General: Mild respiratory distress; dry cough when taking deep breaths; non- toxic appearing; well-nourished; cooperative HEENT: normocephalic, atraumatic; no scleral icterus; PERRLA w/ EOMs intact; moist mucus membrane; vision and hearing grossly intact Neck: supple; no JVD; no lymphadenopathy; trachea midline Skin: warm, dry without signs of tenting; no cyanosis; no rashes, bruising, lesions, or erythema noted CV: Left anterior rib cage TTP; RRR; S1/S2 normal; no murmurs/rubs/gallops; pulses intact and symmetric at radial, DP, and PT Lungs: Mild respiratory distress; symmetrical chest wall expansion; diminished breath sounds in the left lower lung; no wheezing ABD: Soft, NTP; BS present; no rebound/guarding MSK: no tics or fasciculations; no edema noted in the LEs b/l, nonerythematous Neuro: A&Ox3; normal mood and affect; fluent speech; no focal deficits; sensation grossly intact in the LEs B/L Results & Data Results & Data Vital Signs (Past 12 Hours) Vital Signs Temp Pulse Resp BP Pulse Ox O2 Del Method 02/25/23 14:00 100 H 27 H 94 Room Air 02/25/23 13:30 101 H 34 H 02/25/23 13:00 94 Room Air 02/25/23 12:00 93 02/25/23 11:57 94 02/25/23 11:57 102/75 02/25/23 11:30 110 H 37 H 92 02/25/23 11:20 110 H 29 H 91 02/25/23 11:10 111 H 34 H 93 02/25/23 11:07 99/65 L 02/25/23 11:07 109 H 34 H 93 02/25/23 11:04 91/65 L 02/25/23 11:04 114 H 25 H 93 02/25/23 11:00 109 H 24 91 02/25/23 10:50 113 H 25 H 92 02/25/23 10:47 97 Room Air 02/25/23 10:40 111 H 34 H 92 02/25/23 10:30 110 H 32 H 94 02/25/23 10:20 109 H 20 94 02/25/23 10:10 113 H 32 H 94 02/25/23 10:07 112 H 02/25/23 10:02 113 H 27 H 94 02/25/23 10:02 Room Air 02/25/23 09:54 36.4 C L 110 H 20 112/76 93 Room Air Laboratory Results Abnormal lab results 02/25/23 02/25/23 Range/Units 10:05 10:43 Neut # (Auto) 7.90 H (1.40-6.50) K/uL Lymph # (Auto) 0.81 L (1.20-3.40) K/uL Barber # (Auto) 0.69 H (0.11-0.59) K/uL Sodium 133 L (136-145) mmol/L BUN 26 H (6-23) mg/dl Glucose 102 H (70-99(Fasting)) mg/dl Calcium 8.4 L (8.6-10.3) mg/dl AST 71 H (13-39) U/L SARS-CoV-2 (PCR) DETECTED A* (NotDetected) Diagnostic Findings Chest X-Ray 02/25/23 10:24 SINGLE VIEW CHEST CLINICAL HISTORY: Dyspnea FINDINGS: An AP, portable, upright chest radiograph is obtained. No prior studie s are available for comparison at the time of dictation. The examination is degraded by portable technique and patient rotation. An electronic device partially obscures the left upper chest. Leads extend in the neck. The heart is enlarged noting atherosclerotic calcification of the thoracic aorta. The pulmonary vasculature is noncongested. There is bibasilar scarring/atelectasis. There are apparent airspace opacities in the left lower lung which may represent overlying soft tissue. No large pleural effusion or pneumothorax is seen. The skeletal structures are osteopenic. The bony thorax is grossly intact. IMPRESSION: 1. Cardiomegaly without radiographic evidence of congestive failure. 2. Apparent airspace opacities in the left lower lung may be related to overlying soft tissue. A repeat PA and lateral examination is recommended for better assessment. ACT 112: Negative or not required by law. Electronically signed by: Nguyễn Mckeon M.D. 02/25/2023 10:46 AM Chest CTA 02/25/23 11:39 CT ANGIOGRAM OF THE CHEST CLINICAL HISTORY: Dyspnea. Covid. COMPARISON STUDY: Chest x-ray dated 02/25/2023. TECHNIQUE: Following the IV administration of 119 cc of Optiray 320, CT angiogram of the chest was performed from the upper abdomen to the thoracic inlet utilizing the pulmonary embolus protocol. Images are reviewed in the axial, sagittal, and coronal planes. 3-D MIPS images are created and assessed. IV contrast was administered without complication. A dose lowering technique was utilized adhering to the principles of ALARA. CT DOSE: 929.22 mGy.cm FINDINGS: Thyroid: Imaged portions of the thyroid gland are normal in size and attenuation. A 1.5 cm low-attenuation nodule is noted in the left lobe. Thoracic aorta: There is atherosclerotic calcification of the thoracic aorta, which is normal in caliber and demonstrates standard 3-vessel arch anatomy. No dissection is seen. Pulmonary vasculature: The pulmonary trunk is normal in caliber. There are no filling defects identified in main, lobar, or segmental pulmonary branches to suggest pulmonary embolus. Evaluation of the peripheral branches is degraded by motion artifact and suboptimal contrast opacification. Heart: The heart is normal in size and without pericardial effusion. The coronary arteries are densely calcified. Lungs and pleural spaces: There is multifocal patchy groundglass consolidation seen throughout both lungs, greatest at the left lung base. Mediastinum: There is no mediastinal lymphadenopathy. Avril: Mildly enlarged hilar nodes measure up to 15 mm in short axis. Axillae: There is no axillary lymphadenopathy. Upper abdomen: The liver is enlarged and steatotic. Nodularity of the hepatic surface contour suggests morphologic changes of cirrhosis. A 3.5 cm enhancing lesion is suggested arising from the left lobe of liver on image #16. There is a small hiatal hernia. Skeletal structures: No lytic or blastic bony lesions are seen. Degenerative change and kyphoscoliosis is noted in the spine. Arthritic change is noted in the shoulders. Soft tissues: An electronic device is present in the left chest wall with leads extending into the neck. IMPRESSION: 1. There is no evidence of pulmonary embolus in the main, lobar, or segmental pulmonary arteries. Note that evaluation of the peripheral branches is degraded by motion artifact. 2. Multifocal groundglass consolidation is consistent with the reported history of a viral pneumonia. Radiographic follow-up to resolution is recommended. Follow-up imaging should include both PA and lateral projections. 3. Mildly enlarged hilar lymph nodes are likely reactive. 4. The liver is enlarged, severely steatotic, and shows morphologic changes of cirrhosis. 5. A 3.5 cm enhancing mass is suggested arising from the left lobe of the liver. This is pathologically indeterminate, and GI follow-up is recommended as a hepatic neoplasm is to be excluded. 6. Advanced coronary artery atherosclerosis. 7. There is a 1.5 cm low-attenuation nodule in the left lobe of the thyroid. A nonemergent thyroid ultrasound is recommended in follow-up. 8. Additional findings as above. ACT 112: Positive. There are findings on this exam that require communication between the performing entity and the patient following Patient Test Result Information Act ([place] Act 112) guidelines. Electronically signed by: Nguyễn Mckeon M.D. 02/25/2023 1:00 PM Code Status & VTE Plan Code Status Full code VTE Prophylaxis Plan VTE Prophylaxis will be ordered: Yes Supervising Physician Co-Signing Physician Notes I personally saw and examined the patient. I independently reviewed the labs, EKG, imaging, problem list, medication list, past medical history and family history. I verified all dye points and agree with Oneal Vicente PA-C with the following exceptions and/or additions: 67 year old male presents to the ER with shortness of breath and dry cough for one week. Treated with Levaquin and prednisone as outpatient since 02/19. Not previously tested for COVID. O/E HS RRR, no murmurs, mild fine crackles bibasal, no wheezing, Abdo SNT A/P COVID - O2 sats intermittently < 94% with elevated CRP and inflammatory changes on CT - recommend dexamethasone 6mg IV daily. Aim O2 sats >= 94% KINZA - does not wear CPAP Liver mass - AFP added to labs in AM, follow up as outpatient PG Care Time/CCT Total # of Minutes Spent Total Time Spent with Patient: Total time spent is greater than 50% in coordination of care (as documented) at patient's floor/unit and/or counseling patient: [place] [address] INT INP/OBS CARE 2/55MIN Patient Type New Medical Decision Making Low Complexity Diagnoses COVID U07.1 Liver mass R16.0 Parkinsons disease G20 History of hypertension Z86.79
[2023-02-25 14:27] LABS: C Reactive Protein 2.74 mg/dl (0-0.5)
[2023-02-25] MEDS ORDERED: ONDANSETRON INJ 2 MG/ML 2 ML VIAL IV PRN (16:55)
[2023-02-25] MEDS ORDERED: ACETAMINOPHEN 325 MG TAB PO PRN (16:55)
[2023-02-25] MEDS ORDERED: Patient's WEIGHT Needed SCH (17:15)
[2023-02-25] MEDS: ENOXAPARIN INJ 40 MG/0.4 ML SYR SQ SCH (18:04)
[2023-02-25] MEDS: CARBIDOPA/LEVODOPA 25/100MG TAB PO SCH (21:15)
--- NOTE | 2023-02-25 21:43 | Electrocardiogram Report ---
Test Reason : Blood Pressure : / mmHG Vent. Rate : 111 BPM Atrial Rate : 111 BPM P-R Int : 124 ms QRS Dur : 084 ms QT Int : 326 ms P-R-T Axes : -02 -01 004 degrees QTc Int : 443 ms Sinus tachycardia Low voltage QRS Nonspecific ST and T wave abnormality Abnormal ECG When compared with ECG of 26-JAN-2005 05:00, No significant change Confirmed by Gordon Kumar ([id number]) on 02/25/2023 9:42:59 PM Referred By: REFERRED SELF Confirmed By:Gordon Kumar
[2023-02-26 05:06] LABS: Basophils # (auto) 0.01 K/uL (0.00-0.20); Basophils % (auto) 0.1 %; Hematocrit (blood only) 42.1 % (42.0-52.0); Hemoglobin 14.4 g/dl (14.0-18.0); Immature Granulocytes % (auto) 1.1 %; Lymphocytes # (auto) 0.92 K/uL (1.20-3.40); Lymphocytes % (auto) 10.1 %; Mean Corpuscular Hemoglobin 31.6 pg (25.0-34.0); Mean Corpuscular Hgb Conc 34.2 g/dL (32.0-36.0); Mean Corpuscular Volume 92.3 fL (80.0-100.0); Mean Platelet Volume 10.3 fL (9.4-12.4); Monocytes # (auto) 0.52 K/uL (0.11-0.59); Monocytes % (auto) 5.7 %; Platelet Count 218 K/uL (130-400); RDW Coefficient of Variation 12.6 % (11.5-14.5); Red Blood Count 4.56 M/uL (4.70-6.10); White Blood Count 9.15 K/ul (4.8-10.8)
[2023-02-26 05:19] LABS: BUN Creatinine Ratio 18.7 (10-20); Calcium 7.9 mg/dl (8.6-10.3); Creatinine Clr Calc Pharmacy 76.3 ml/min; Est GFR (Non-African American) 59.5 ml/min; Potassium 3.9 mmol/L (3.5-5.1)
[2023-02-26] MEDS: dexAMETHasone 6 MG in SYRINGE 0 ML IV SCH (08:43)
[2023-02-26] MEDS: CARBIDOPA/LEVODOPA 25/100MG TAB PO SCH ×3 (08:43→20:43)
[2023-02-26] MEDS: lisinopril 40 MG TAB PO SCH (08:43)
[2023-02-26] MEDS: CHLORTHALIDONE 25 MG TAB PO SCH (08:43)
[2023-02-26] MEDS ORDERED: guaiFENesin 600 MG TABCR PO SCH (09:00)
[2023-02-26] MEDS ORDERED: DEXAMETHASONE SOD INJ 4 MG/ML VIAL IV SCH (09:00)
[2023-02-26] MEDS: BENZONATATE 100 MG CAPSULE PO SCH ×3 (09:31→20:43)
--- NOTE | 2023-02-26 17:21 | Hospitalist Progress Note ---
Date of Service February 26, 2023 Assessment & Plan (1) Pneumonia due to COVID-19 virus: Plan: b/l worse on left (CTA Chest 02/25). thus far not hypoxic. out of window for use of Remdesivir IV. started on IV dexamethasone 6mg daily on 02/25. continue such for up to 10 days. add albuterol qid scheduled. tessalon TID. add hycodan q6h prn. stop mucinex due to hycodan use. cont airborne precautions. labs in am. check CRP in am. of note - patient had been on levofloxacin since 02/19 but clinical picture not c/w bacterial pneumonia. he completed nearly 7 days of Rx. will stop. fortunately no evidence of complicating CHF or PE. (2) Liver mass: Plan: Chest CTA noted 3.5 cm liver mass; recommended GI follow-up to exclude hepatic neoplasm AFP sent and pending Will certified addiction counselor patient (3) Parkinsons disease: Plan: Continue Sinemet Has deep brain stimulator (4) History of hypertension: Plan: Continue lisinopril, chlorthalidone Recheck BMP am (5) Tachycardia: Plan: sinus tach likely 2nd to #1 above if any worsening consider echo TSH wnl Plan VTE PPx - Lovenox 40 mg SQ q24h may need PT/OT daughter updated at bedside Admission and Anticipated Discharge Date Admission Date: February 25, 2023 Subjective tele overnight - NSR or sinus tach pt was resting comfortably during the visit daughter at bedside pt's main complaint is dry cough constant hurts under the left ribs with coughing no true pleuritic pain no substernal pain or right-sided chest pain denies dyspnea eating well - 100% of meals some scratchy throat did state that the albuterol given yesterday did help his cough Review of Systems Review of Systems: gen - no fevers or chills cv - see HPI; no edema of legs pulm - no sputum; denies h/o lung disease GI - no abd pain/nausea/emesis Physical Exam Physical Exam: gen - coughing the entire visit but no distress, awake, alert neck - no JVD mouth - MMM heart - tachy, s1 s2, no murmur lungs - decreased BS bases but no discernible rales or wheezes abd - soft NT ND BS+ ext - no edema, pulses 2+ b/l psych - a/o x 3 skin - deep brain stimulator L upper chest Results & Data Results & Data Vital Signs (Past 12 Hours) Vital Signs Temp Pulse Pulse Resp BP Pulse Ox O2 Del Method 02/26/23 15:12 36.6 C 113 H 18 143/80 H 93 Room Air 02/26/23 15:10 108 H 02/26/23 12:29 36.8 C 112 H 18 141/92 H 93 Room Air 02/26/23 10:23 Room Air 02/26/23 10:22 82 02/26/23 08:51 37.0 C 96 H 20 146/81 H 94 Room Air Laboratory Results Laboratory Results - last 24 hr 02/26/23 04:12 WBC 9.15 RBC 4.56 L Hgb 14.4 Hct 42.1 MCV 92.3 MCH 31.6 MCHC 34.2 RDW Std Deviation 43.0 RDW Coeff of Hiral 12.6 Plt Count 218 MPV 10.3 Immature Gran % (Auto) 1.1 Neut % (Auto) 83.0 Lymph % (Auto) 10.1 Miller % (Auto) 5.7 Eos % (Auto) 0.0 Baso % (Auto) 0.1 Neut # (Auto) 7.60 H Lymph # (Auto) 0.92 L Miller # (Auto) 0.52 Eos # (Auto) 0.00 Baso # (Auto) 0.01 Immature Gran # (Auto) 0.10 Sodium 134 L Potassium 3.9 Chloride 100 Carbon Dioxide 25 Anion Gap 9 BUN 23 Creatinine 1.23 Est Cr Clr Drug Dosing 76.3 Est GFR ( Amer) 69.0 Est GFR (Non-Af Amer) 59.5 BUN/Creatinine Ratio 18.7 Glucose 121 H Calcium 7.9 L Tumor Marker AFP Pending TSH 1.427 PG Care Time/CCT Total # of Minutes Spent Total Time Spent with Patient: Total time spent is greater than 50% in coordination of care (as documented) at patient's floor/unit and/or counseling patient: Coding Level of Care Code 49268 SUB INP/OBS CARE 2/35MIN Diagnoses Pneumonia due to COVID-19 virus U07.1; J12.82 Liver mass R16.0 Parkinsons disease G20 History of hypertension Z86.79 Tachycardia R00.0
[2023-02-26] MEDS: ALBUTEROL HFA 8 GM INHALER INH SCH ×2 (17:39→19:00)
[2023-02-26] MEDS: ENOXAPARIN INJ 40 MG/0.4 ML SYR SQ SCH (18:27)
[2023-02-26] MEDS: HYDROcodone/HOMATROPINE SYRUP 5MG/1.5MG 5ML UDP PO PRN (19:07)
[2023-02-27 05:21] LABS: Basophils # (auto) 0.01 K/uL (0.00-0.20); Basophils % (auto) 0.1 %; Eosinophils # (auto) 0.03 K/uL (0.00-0.50); Eosinophils % (auto) 0.3 %; Hematocrit (blood only) 41.3 % (42.0-52.0); Hemoglobin 14.4 g/dl (14.0-18.0); Immature Granulocytes # (auto) 0.07 K/uL (0.01-0.20); Immature Granulocytes % (auto) 0.6 %; Lymphocytes # (auto) 1.36 K/uL (1.20-3.40); Lymphocytes % (auto) 12.4 %; Mean Corpuscular Hemoglobin 32.3 pg (25.0-34.0); Mean Corpuscular Hgb Conc 34.9 g/dL (32.0-36.0); Mean Corpuscular Volume 92.6 fL (80.0-100.0); Mean Platelet Volume 10.4 fL (9.4-12.4); Monocytes # (auto) 0.58 K/uL (0.11-0.59); Monocytes % (auto) 5.3 %; Neutrophils # (auto) 8.92 K/uL (1.40-6.50); Neutrophils % (auto) 81.3 %; Platelet Count 228 K/uL (130-400); RDW Coefficient of Variation 12.5 % (11.5-14.5); RDW Standard Deviation 42.6 fL (36.4-46.3); Red Blood Count 4.46 M/uL (4.70-6.10); White Blood Count 10.97 K/ul (4.8-10.8)
[2023-02-27 05:23] LABS: BUN Creatinine Ratio 21.3 (10-20); C Reactive Protein 5.9 mg/dl (0-0.5); Calcium 7.9 mg/dl (8.6-10.3); Est GFR (African American) 61.1 ml/min; Est GFR (Non-African American) 52.7 ml/min; Potassium 3.6 mmol/L (3.5-5.1)
[2023-02-27] MEDS: ALBUTEROL HFA 8 GM INHALER INH SCH ×4 (07:39→19:46)
[2023-02-27] MEDS: CHLORTHALIDONE 25 MG TAB PO SCH (08:59)
[2023-02-27] MEDS: lisinopril 40 MG TAB PO SCH (08:59)
[2023-02-27] MEDS: CARBIDOPA/LEVODOPA 25/100MG TAB PO SCH ×3 (09:00→20:30)
[2023-02-27] MEDS: BENZONATATE 100 MG CAPSULE PO SCH ×3 (09:00→20:30)
[2023-02-27] MEDS: dexAMETHasone 6 MG in SYRINGE 0 ML IV SCH (09:07)
--- NOTE | 2023-02-27 14:49 | Fluoroscopy Report ---
FL video swallow HISTORY: Pneumonia. r/o aspiration TECHNIQUE: Video fluoroscopic evaluation of swallowing was performed in the AP and lateral projection s by the speech pathology staff. The patient is fed nectar-thick and thin liquid barium, a barium coa wilbert wafer, and barium pudding. FLUOROSCOPY TIME: 1 minute and 31 seconds. Ka,r: 30 mGy COMPARISON STUDY: None. FINDINGS: There is normal hyoid excursion and epiglottic deflection. No significant penetration or as piration identified. Swallowing function is within normal limits. IMPRESSION: 1. No aspiration identified. 2. Please see the speech pathologist report for detailed findings and recommendations. ACT 112: Negative or not required by law. Electronically signed by: Oneal Chen M.D. 02/27/2023 2:48 PM
[2023-02-27] MEDS: INSULIN ASPART PER UNIT CHARGE SC SCH ×2 (18:00→20:16)
[2023-02-27] MEDS: ENOXAPARIN INJ 40 MG/0.4 ML SYR SQ SCH (18:00)
--- NOTE | 2023-02-27 19:25 | Hospitalist Progress Note ---
Date of Service February 27, 2023 Assessment & Plan (1) Pneumonia due to COVID-19 virus: Plan: b/l worse on left (CTA Chest 02/25). o2 sats remain acceptable in room air. he was out of the window for use of Remdesivir IV at time of admission . started on IV dexamethasone 6mg daily on 02/25. thus, day #3 of such today. continue for up to 10 days. cont albuterol qid scheduled. tessalon TID. cont hycodan q6h prn. cont airborne precautions. labs in am. CRP noted - will recheck in am. of note - patient had been on levofloxacin since 02/19 but clinical picture not c/w bacterial pneumonia. he completed nearly 7 days of Rx. levaquin stopped. fortunately no evidence of complicating CHF or PE. plan repeat cxr am. (2) Liver mass: Plan: Chest CTA noted 3.5 cm liver mass; recommended GI follow-up to exclude hepatic neoplasm AFP sent and returned normal Will extension course counselor patient before discharge -- will need follow-up for this (3) Parkinsons disease: Plan: Continue Sinemet Has deep brain stimulator (4) History of hypertension: Plan: Continue lisinopril, chlorthalidone BMP stable (5) Tachycardia: Plan: sinus tach likely 2nd to #1 above improved today TSH wnl (6) Hyperglycemia: Plan: may simply be due to steroids but check a1c in am - r/o early T2DM in meantime - DM diet, BSGs ac/hs, and add novolog SSI (7) Morbid obesity with BMI of 40.0-44.9, adult: Plan: BMI ~40 Plan VTE PPx - Lovenox 40 mg SQ q24h left message for daughter on her voicemail this evening PT jassal requested home next 1-2 days more than likely Admission and Anticipated Discharge Date Admission Date: February 25, 2023 Subjective tele overnight - sinus tach, then NSR pt sitting in the chair during the visit states he feels much better still w/ cough, but the cough is not as bad, and he can "Breath better" overall denies dyspnea at rest eating 100% of meals we discussed the high BSGs and that an a1c will be checked tomorrow denies any new complaints Review of Systems Review of Systems: gen - no fevers or chills cv - no chest pain pulm - no sputum - just dry cough; albuterol is helping his cough GI - no nausea/emesis Physical Exam Physical Exam: gen - looks better today, NAD - but still coughing at times neck - no JVD mouth - MMM heart - RRR, s1 s2, no murmur lungs - decreased BS bases but no discernible rales or wheezes, no increased work of breathing abd - soft NT ND BS+ ext - no edema, pulses 2+ b/l psych - a/o x 3 Results & Data Results & Data Vital Signs (Past 12 Hours) Vital Signs Temp Pulse Pulse Resp BP Pulse Ox O2 Del Method 02/27/23 15:21 93 H 02/27/23 15:00 95 H 18 93 Room Air 02/27/23 14:37 36.7 C 84 18 101/62 95 Room Air 02/27/23 12:47 37.0 C 96 H 18 165/68 H 95 Room Air 02/27/23 11:27 92 H 17 91 Room Air 02/27/23 09:00 Room Air 02/27/23 07:40 90 18 91 Room Air 02/27/23 07:31 83 Laboratory Results Laboratory Results - last 24 hr 02/26/23 02/27/23 02/27/23 04:12 04:13 09:52 WBC 10.97 H RBC 4.46 L Hgb 14.4 Hct 41.3 L MCV 92.6 MCH 32.3 MCHC 34.9 RDW Std Deviation 42.6 RDW Coeff of Hiral 12.5 Plt Count 228 MPV 10.4 Immature Gran % (Auto) 0.6 Neut % (Auto) 81.3 Lymph % (Auto) 12.4 [place] % (Auto) 5.3 Eos % (Auto) 0.3 Baso % (Auto) 0.1 Neut # (Auto) 8.92 H Lymph # (Auto) 1.36 [place] # (Auto) 0.58 Eos # (Auto) 0.03 Baso # (Auto) 0.01 Immature Gran # (Auto) 0.07 Sodium 132 L Potassium 3.6 Chloride 98 Carbon Dioxide 27 Anion Gap 7 BUN 29 H Creatinine 1.36 Est Cr Clr Drug Dosing 69.0 Est GFR ( Amer) 61.1 Est GFR (Non-Af Amer) 52.7 BUN/Creatinine Ratio 21.3 H Glucose 160 H POC Glucose 173 H Calcium 7.9 L C-Reactive Protein 5.90 H Tumor Marker AFP 5.1 02/27/23 02/27/23 12:34 17:33 WBC RBC Hgb Hct MCV MCH MCHC RDW Std Deviation RDW Coeff of Hiral Plt Count MPV Immature Gran % (Auto) Neut % (Auto) Lymph % (Auto) [place] % (Auto) Eos % (Auto) Baso % (Auto) Neut # (Auto) Lymph # (Auto) [place] # (Auto) Eos # (Auto) Baso # (Auto) Immature Gran # (Auto) Sodium Potassium Chloride Carbon Dioxide Anion Gap BUN Creatinine Est Cr Clr Drug Dosing Est GFR ( Amer) Est GFR (Non-Af Amer) BUN/Creatinine Ratio Glucose POC Glucose 169 H 172 H Calcium C-Reactive Protein Tumor Marker AFP PG Care Time/CCT Total # of Minutes Spent Total Time Spent with Patient: Total time spent is greater than 50% in coordination of care (as documented) at patient's floor/unit and/or counseling patient: Coding Level of Care Code 14768 SUB INP/OBS CARE 235MIN Diagnoses Pneumonia due to COVID-19 virus U07.1; J12.82 Liver mass R16.0 Parkinsons disease G20 History of hypertension Z86.79 Tachycardia R00.0 Hyperglycemia R73.9 Morbid obesity with BMI of 40.0-44.9, adult E66.01; Z68.41
[2023-02-27] MEDS: HYDROcodone/HOMATROPINE SYRUP 5MG/1.5MG 5ML UDP PO PRN (20:40)
[2023-02-28 05:47] LABS: BUN Creatinine Ratio 20.5 (10-20); Calcium 8.2 mg/dl (8.6-10.3); Creatinine Clr Calc Pharmacy 73.9 ml/min; Est GFR (African American) 66.4 ml/min; Est GFR (Non-African American) 57.3 ml/min; Potassium 3.6 mmol/L (3.5-5.1)
[2023-02-28] MEDS: ALBUTEROL HFA 8 GM INHALER INH SCH ×4 (07:24→20:08)
[2023-02-28 07:59] LABS: Estimated Average Glucose 154 mg/dl
[2023-02-28] MEDS: CHLORTHALIDONE 25 MG TAB PO SCH (08:36)
[2023-02-28] MEDS: BENZONATATE 100 MG CAPSULE PO SCH ×3 (08:36→20:29)
[2023-02-28] MEDS: CARBIDOPA/LEVODOPA 25/100MG TAB PO SCH ×3 (08:37→20:29)
[2023-02-28] MEDS: lisinopril 40 MG TAB PO SCH (08:37)
[2023-02-28] MEDS: dexAMETHasone 6 MG in SYRINGE 0 ML IV SCH (08:38)
[2023-02-28] MEDS: INSULIN ASPART PER UNIT CHARGE SC SCH ×4 (08:58→20:30)
--- NOTE | 2023-02-28 09:45 | XRay Report ---
XR chest 1V portable HISTORY: 67 years-old Male covid pneumonia, interval change acute shortness of breath COMPARISON: 02/25/2023 TECHNIQUE: AP view of the chest FINDINGS: Cardiomediastinal and hilar silhouettes are unchanged. Left pectoral battery pack with partially imag ed leads extending superiorly along the left chest and neck. No pneumothorax or large pleural effusio n. Hazy ill-defined patchy bilateral pulmonary opacities redemonstrated within a peripheral and bibas ilar prominent distribution. Bones appear grossly intact. IMPRESSION: Generally stable appearance of the patchy bilateral pulmonary opacities suggestive of vir al pneumonia. ACT 112: Negative or not required by law. The above report was generated using voice recognition software. It may contain grammatical, syntax o r spelling errors. Electronically signed by: Braeden Patterson M.D. 02/28/2023 9:43 AM
[2023-02-28 10:22] LABS: C Reactive Protein 5.66 mg/dl (0-0.5)
[2023-02-28] MEDS: HYDROcodone/HOMATROPINE SYRUP 5MG/1.5MG 5ML UDP PO PRN ×2 (11:51→20:29)
[2023-02-28] MEDS: ENOXAPARIN INJ 40 MG/0.4 ML SYR SQ SCH (18:12)
--- NOTE | 2023-02-28 18:16 | Hospitalist Progress Note ---
Date of Service February 28, 2023 Assessment & Plan (1) Pneumonia due to COVID-19 virus: Plan: IMPROVING b/l -- worse on left (CTA Chest 02/25). o2 sats remain acceptable in room air at rest and with activity (nursing walked him in the room today and sats stayed about 90% in RA). he was out of the window for use of Remdesivir IV at time of admission . started on IV dexamethasone 6mg daily on 02/25. thus, day #4 of such today. continue for up to 10 days. cont albuterol qid scheduled. tessalon TID. cont hycodan q6h prn. cont airborne precautions. CRP noted - mildly high but stsable. of note - patient had been on levofloxacin since 02/19 but clinical picture not c/w bacterial pneumonia. he completed nearly 7 days of Rx. levaquin stopped. fortunately no evidence of complicating CHF or PE. cxr today stable. anticipate d/c home tomorrow with steroids. (2) Liver mass: Plan: Chest CTA noted 3.5 cm liver mass; recommended GI follow-up to exclude hepatic neoplasm AFP sent and returned normal Will memorial counselor patient before discharge -- will need follow-up for this (3) Parkinsons disease: Plan: Continue Sinemet Has deep brain stimulator (4) History of hypertension: Plan: Continue lisinopril, chlorthalidone BMP stable (5) Tachycardia: Plan: sinus tach likely 2nd to #1 above improved TSH wnl (6) Morbid obesity with BMI of 40.0-44.9, adult: Plan: BMI ~40 (7) Type 2 diabetes mellitus: Plan: a1c 7% c/w T2DM he can cont with diet control at home asked DM educator to try and get him a meter to check his BSGs at home sugars should improve as illness improves and as steroids are weaned off Plan VTE PPx - Lovenox 40 mg SQ q24h updated pt's daughter by phone this evening anticipate d/c home tomorrow morning Admission and Anticipated Discharge Date Admission Date: February 25, 2023 Subjective overall feels much better cough improved no dyspnea can take larger breaths slept better last pm eating robustly is frustrated hearing about the diabetes he mentions his a1c's have been as high as near 8% and took jardiance in the past he does not have a glucometer at home has never checked BSGs reassured him that the current elevated BSGs is mainly due to the steroids he recounts the events leading up to his 's 2-3 weeks ago was very tearful mentions that he is anxious to get home to his daughter who now has COVID (they live together) Review of Systems Review of Systems: gen - no fevers or chills cv - no chest pain pulm - no dyspnea or ISAAC GI - no abd pain; ongoing diarrhea - about 3x's each day after eating Physical Exam Physical Exam: gen - looks well, no cough today, sitting in chair comfortably, tearful talking about his 's neck - no JVD mouth - MMM heart - RRR, s1 s2, no murmur lungs - improved airation b/l bases; no obvious rales or wheezes, no increased work of breathing abd - soft NT ND BS+ ext - no edema, pulses 2+ b/l psych - a/o x 3 Results & Data Results & Data Vital Signs (Past 12 Hours) Vital Signs Temp Pulse Pulse Resp BP Pulse Ox O2 Del Method 02/28/23 17:01 36.5 C 98 H 18 108/65 92 Room Air 02/28/23 15:32 105 H 20 90 Room Air 02/28/23 14:05 103 H 02/28/23 11:59 108 H 20 92 Room Air 02/28/23 09:35 Room Air 02/28/23 08:35 110/74 02/28/23 07:38 36.6 C 98 H 20 92 Room Air 02/28/23 07:26 94 H 18 92 Room Air Laboratory Results Laboratory Results - last 24 hr 02/27/23 02/28/23 02/28/23 20:00 04:08 04:08 Sodium 134 L Potassium 3.6 Chloride 98 Carbon Dioxide 26 Anion Gap 10 BUN 26 H Creatinine 1.27 Est Cr Clr Drug Dosing 73.9 Est GFR ( Amer) 66.4 Est GFR (Non-Af Amer) 57.3 BUN/Creatinine Ratio 20.5 H Glucose 101 H POC Glucose 176 H Estimat Average Glucose 154 Hemoglobin A1c 7.0 H Calcium 8.2 L C-Reactive Protein 5.66 H Cancelled Stl C. diff Tox B Gene 02/28/23 02/28/23 02/28/23 07:36 12:26 16:58 Sodium Potassium Chloride Carbon Dioxide Anion Gap BUN Creatinine Est Cr Clr Drug Dosing Est GFR ( Amer) Est GFR (Non-Af Amer) BUN/Creatinine Ratio Glucose POC Glucose 96 173 H 140 H Estimat Average Glucose Hemoglobin A1c Calcium C-Reactive Protein PG Care Time/CCT Total # of Minutes Spent Total Time Spent with Patient: Total time spent is greater than 50% in coordination of care (as documented) at patient's floor/unit and/or counseling patient: Coding Level of Care Code 83080 SUB INP/OBS CARE 2/35MIN Diagnoses Pneumonia due to COVID-19 virus U07.1; J12.82 Liver mass R16.0 Parkinsons disease G20 History of hypertension Z86.79 Tachycardia R00.0 Morbid obesity with BMI of 40.0-44.9, adult E66.01; Z68.41 Type 2 diabetes mellitus E11.9
[2023-03-01 05:59] LABS: Hematocrit (blood only) 42.6 % (42.0-52.0); Mean Corpuscular Hgb Conc 35.2 g/dL (32.0-36.0); Mean Corpuscular Volume 90.8 fL (80.0-100.0); Mean Platelet Volume 10.2 fL (9.4-12.4); Platelet Count 254 K/uL (130-400); RDW Coefficient of Variation 12.6 % (11.5-14.5); RDW Standard Deviation 42.1 fL (36.4-46.3); Red Blood Count 4.69 M/uL (4.70-6.10); White Blood Count 10.85 K/ul (4.8-10.8)
[2023-03-01 06:17] LABS: Anion Gap 10 (3-11); Blood Urea Nitrogen 32 mg/dl (6-23); Calcium 8.2 mg/dl (8.6-10.3); Carbon Dioxide 25 mmol/L (21-32); Chloride 98 mmol/L (98-107); Creatinine Clr Calc Pharmacy 66.7 ml/min; Est GFR (African American) 59.5 ml/min; Est GFR (Non-African American) 51.3 ml/min; Glucose 101 mg/dl (70-99(Fasting)); Sodium 133 mmol/L (136-145)
[2023-03-01] MEDS: ALBUTEROL HFA 8 GM INHALER INH SCH ×3 (07:40→14:57)
[2023-03-01] MEDS: dexAMETHasone 6 MG in SYRINGE 0 ML IV SCH (09:15)
[2023-03-01] MEDS: BENZONATATE 100 MG CAPSULE PO SCH ×2 (09:15→13:27)
[2023-03-01] MEDS: lisinopril 40 MG TAB PO SCH (09:16)
[2023-03-01] MEDS: CHLORTHALIDONE 25 MG TAB PO SCH (09:16)
[2023-03-01] MEDS: CARBIDOPA/LEVODOPA 25/100MG TAB PO SCH ×2 (09:16→13:27)
[2023-03-01] MEDS: INSULIN ASPART PER UNIT CHARGE SC SCH ×2 (09:17→13:17)
--- NOTE | 2023-03-01 12:46 | Discharge Summary ---
Date of Service March 01, 2023 Admission HPI Per Admitting Provider Dave is a 67-year-old male with PMH of essential tremor, HTN, HLD, and Parkinson's disease. He presented for worsening SOB and dry cough x 8 days. COVID-positive on arrival. Patient reports that he has been taking NyQuil at night for his dry cough, but has not been helping. He also endorses left-sided chest pain from the cough. Breathing/coughing is not positional, or worse when lying flat. Taking deep breaths causes the patient to cough, which makes the left-sided chest pain worse. Patient has never had COVID in the past. However he has received 2 COVID vaccinations, as well as a booster (with the last booster being December 2020). Patient does endorse being around sick contacts recently, but reports that he has been feeling sick and coughing even before that. Symptoms began on 02/17. No at home supplemental oxygen use. Patient denies tobacco use, smoking, vaping, alcohol use, and recreational drug use. Patient also reports that he has been on levofloxacin 500 mg daily x 10 days, which she was prescribed by his PCP on 02/19 for cough. He also reports that he had burning with urination about a week ago, however this resolved. He also reports that he had 1 episode 3-4 weeks ago of heavy coughing while drinking coffee that "went down the wrong pipe"; this led the patient to have a brief syncopal episode for several seconds; no head strike; he did not seek medical attention at this time. Patient took all of his morning medications today; no recent change in medications. He is mildly hypotensive at 93/76 at time of admission; SpO2 94% on RA. ED course: Albuterol 2 puffs Rocephin 2000 mg IV Decadron 6 mg IV NSS 1000 mL IV Hycodan 5 mL p.o. ROS: Patient endorses body aches, lightheadedness, L-sided chest pain (which patient attributes to coughing; pleuritic), dry cough, and burning with urination (which resolved one week ago). Patient denies fever, chills, nightsweats, BONILLA, chest palpitations, SOB at rest, ISAAC, hemoptysis, abdominal pain, N/V/D, dysuria, or numbness/tingling in the arms or legs. Discharge Exam gen - looks well, no cough today, sitting in chair comfortably, tearful talking about his 's neck - no JVD mouth - MMM heart - RRR, s1 s2, no murmur lungs - improved airation b/l bases; no obvious rales or wheezes, no increased work of breathing abd - soft NT ND BS+ ext - no edema, pulses 2+ b/l psych - a/o x 3 Discharge Data Allergies Allergy/AdvReac Type Severity Reaction Status Date / Time propranolol AdvReac Severe water Verified 02/25/23 13:28 weight gain Consultations 02/25/23 14:00 ED Decision to Admit Stat Ordered Studies 02/25/23 11:39 CT angio chest PE protocol Stat 02/27/23 13:30 FL video swallow Routine Diabetes Follow up Diabetes Follow-up Needed for Newly Diagnosed Diabetes Hospital Course (1) Pneumonia due to COVID-19 virus: IMPROVING b/l -- worse on left (CTA Chest 02/25). o2 sats remain acceptable in room air at rest and with activity (nursing walked him in the room today and sats stayed about 90% in RA). he was out of the window for use of Remdesivir IV at time of admission . started on IV dexamethasone 6mg daily on 02/25. thus, day #4 of such today. continue for up to 10 days. cont albuterol qid scheduled. tessalon TID. cont hycodan q6h prn. cont airborne precautions. CRP noted - mildly high but stsable. of note - patient had been on levofloxacin since 02/19 but clinical picture not c/w bacterial pneumonia. he completed nearly 7 days of Rx. levaquin stopped. fortunately no evidence of complicating CHF or PE. cxr today stable. anticipate d/c home tomorrow with steroids. (2) Liver mass: Chest CTA noted 3.5 cm liver mass; recommended GI follow-up to exclude hepatic neoplasm AFP sent and returned normal [facility] counselor patient before discharge -- will need follow-up for this (3) Parkinsons disease: Continue Sinemet Has deep brain stimulator (4) History of hypertension: Continue lisinopril, chlorthalidone BMP stable (5) Tachycardia: sinus tach likely 2nd to #1 above improved TSH wnl (6) Morbid obesity with BMI of 40.0-44.9, adult: BMI ~40 (7) Type 2 diabetes mellitus: a1c 7% c/w T2DM he can cont with diet control at home asked DM educator to try and get him a meter to check his BSGs at home sugars should improve as illness improves and as steroids are weaned off Plan VTE PPx - Lovenox 40 mg SQ q24h updated pt's daughter by phone this evening anticipate d/c home tomorrow morning Discharge Plan Discharge Items Patient Disposition: Home - Self-Care Reason For Visit: Cough, shortness of breath Discharge Diagnosis: 1. COVID-19 pneumonia - improving 2. Diarrhea - likely due to COVID infection or recent antibiotics - resolving 3. Shortness of breath/cough - due to #1 4. Diabetes - mild - hemoglobin a1c 7% 5. Question of a spot on the liver (seen incidentally on CT scan) - gastroenter ology follow-up needed 6. Small thyroid nodule (seen incidentally on CT scan) - follow-up with your family doctor needed 7. Parkinson's disease Activity: As commented below Activity Comment: GRADUALLY increase activities over the next 1-2 weeks Exercise/Sports: Wait until after follow-up appointment Driving/Machine Use: Resume 3 days after discharge Non-emergency contact: Primary Care Provider and Insolvency Practitioner Call non-emergency contact if: you have any medication questions, your symptoms worsen and you have a fever Follow-up/Referrals: Shaun Jo [Primary Care Provider] - 03/08/23 1:15 pm (1 week ) Jayda Resendiz Jr, MD [Physician] - (2-4 weeks; ?cyst vs other lesion of the liver ) Diet: Carb Consistent or DM2 Addtl Attending Provider Instructions: Mr Esquivel, You were hospitalized for COVID-19 pneumonia. Fortunately during the stay you did not require oxygen. We performed a walking oxygen test on day of discharge and this showed you do not need oxygen for home during your recovery. You made nice improvement with IV steroids, albuterol treatments, and other supportive care. During the hospitalization you had some diarrhea. We checked the stool for a bacterial infection called c.diff and this returned negative. The diarrhea was likely from your COVID infection or the recent antibiotics. Also during the visit your blood sugars were high due to the steroids you were receiving. Your blood sugars have improved nicely with time. Your hemoglobin a1c is 7% - this means that you have mild diabetes. You can control this with diet for now; I am not recommending any medicines for your sugar. We were able to get you a glucometer so you can check your blood sugars at home. On your CT scan that you had in the ER it showed 2 incidental findings that will need follow-up - * a small thyroid "nodule" was seen in your thyroid gland which sits at the front of the neck; the vast majority of nodules are benign/not harmful * a possible cyst or other type of lesion on the liver - you will likely need additional pictures taken (ultrasound, MRI, etc) of this spot Recommendations - 1. Plan to isolate for at least 3-4 more days at home. If on March 05, you wake up feeling well, symptoms are continuing to improve, and you have had no fevers you can end your isolation period. Until that time please plan to take it easy and rest. 2. Dexamethasone steroid - this is for your COVID pneumonia - 6mg once daily x 5 days, first dose tomorrow 03/02/23. Take with food. The dexamethasone steroid will raise your blood sugars over the next week or so. 3. For cough - * wjzq-tqf-vrcccej mucinex up to 1200mg twice daily as needed for cough/congestion * albuterol via plastic spacer device - 2 puffs every 4 hours as needed for cough/wheeze/shortness of breath * see handout on how to use the spacer device 4. For severe cough you can take codeine cough syrup. I have sent this to your pharmacy for you. The dose is 5ml every 6 hours as needed for cough. If you take the codeine cough syrup please STOP the rrnt-vdg-mpofzwa mucinex and other robitussin products. Codeine cough syrup can - * make you sleepy / drowsy * cause constipation * impair your senses Thus - DO NOT DRIVE A CAR or DRINK ALCOHOL while taking codeine-based cough syrup. 5. Continue to use your flutter valve and incentive spirometer devices over the next week. 6. You likely have at least another 1-2 weeks of recovery ahead. The last symptom to go away from COVID is often the cough. The cough could last several more weeks. It is important to listen to your body during your recovery - don't over do it! Focus on good nutrition and hydration, rest when you need it, etc. During the upcoming snow storm please do not shovel your driveway or do heavy lifting/other heavy activity. It will be important for you to take it easy. 7. Purchase a pulse oximeter for your finger so that you can monitor your oxygen levels at home. You can buy them at most pharmacies. If your oxygen levels are consistently 90% or greater these are acceptable readings. If you are less than 90% consistently please seek medical attention. 8. If you have any diarrhea at home you can take iadu-zvy-yidlnle imodium as desired. 9. Check your blood sugars once or twice a day moving forward so that you know what your sugars are doing on a day to day basis. Again your numbers are going to run high over the next 5-7 days. If your sugars are consistently greater than 200 please let your family doctor know. Follow-up - see separate section Return to [facility] if - * you have fevers over 100 degrees * you have worsening shortness of breath or chest pains * you have pulse oximeter readings on your finger consistently less than 90% * you have uncontrollable cough * any other concerns It was my pleasure to care for you! Please know your family will be in my thoughts and prayers, -Dr Harrison Pending Studies at Discharge: No Stand-Alone Forms: My [facility], Smoking Cessation Medications and DC Order Prescriptions: New albuterol sulfate [Ventolin HFA] 90 mcg/actuation Hfa Aerosol Inhaler 2 puff inhalation Q4H PRN (Reason: cough/wheeze/shortness of breath) Qty: 1 0RF Rx Instructions: use with spacer device dexamethasone 6 mg tablet 6 mg PO DAILY Qty: 5 0RF Rx Instructions: start 03/02/23; take with food. (DME) OneTouch Verio test strips Strip See Rx Instructions .Route Qty: 100 1RF Rx Instructions: Check blood sugars once daily. (DME) lancets [OneTouch Delica Plus Lancet] 33 gauge misc See Rx Instructions .Route Qty: 100 1RF Rx Instructions: check blood sugars once daily codeine-guaifenesin 10-100 mg/5 mL liquid 5 ml PO Q6H PRN (Reason: severe cough) Qty: 120 0RF Continued mecobalamin (vitamin B12) 1,000 mcg tablet,disintegrating 1,000 mcg sublingual DAILY Qty: 30 11RF Rx Instructions: Place 1 tablet under the tongue and allow to dissolve for at least 30 secs before swallowing. cholecalciferol (vitamin D3) 125 mcg (5,000 unit) capsule 125 mcg PO DAILY 56 Days Qty: 60 1RF carbidopa-levodopa [Sinemet] 25-100 mg tablet 2 tab PO TID 90 Days Qty: 540 1RF lisinopril 40 mg tablet 40 mg PO DAILY chlorthalidone 25 mg tablet 25 mg PO DAILY Discharge Orders: Discharge Order (Routine); Ordered 03/01/23 Ordered By: Prateek Lopez/Other Patient Handouts: Using an Inhaler with a Spacer, Managing Diabetes: The A1C Test, Diabetes: Meal Planning, Type 2 Diabetes Admission Data Admit Date/Time: 02/25/23 14:50 Attending Provider: Prateek Harrison Admit Provider: Prateek Higuera Primary Care Provider: Shaun Jo Other Providers: Prateek Higuera Coding Diagnoses Pneumonia due to COVID-19 virus U07.1; J12.82 Liver mass R16.0 Parkinsons disease G20 History of hypertension Z86.79 Tachycardia R00.0 Morbid obesity with BMI of 40.0-44.9, adult E66.01; Z68.41 Type 2 diabetes mellitus E11.9
== END 2023-03-01 15:31 | disposition home or self-care (01) | DRG 177 ==
LOC: ED 09:46 → EDINP 14:50 → SUATTDRO 14:50 → 2W 20:03